=== PATIENT | female | born 1995 | race Caucasian/White ===

== ENCOUNTER → 2021-09-05 08:03 | Outpatient (CLI) | payer BC, SELFPAY | PROVIDERS: Visit Provider Nurse Practitioner | DX: U07.1 COVID-19 (principal) | CPT/HCPCS: C9803; U0003; U0005 ==

== ENCOUNTER → 2021-09-12 08:17 | Outpatient (CLI) | payer BC, SELFPAY ==
--- NOTE | 2021-09-14 12:52 | PC.NURSE ---
attempted to contact about positive covid test results, unable to reach at this time
== END ==
PROVIDERS: Visit Provider Nurse Practitioner
DX: U07.1 COVID-19 (principal)
CPT/HCPCS: C9803; U0003; U0005

== ENCOUNTER 2023-12-06 10:12 | Outpatient (CLI) | payer BC, SELFPAY ==
[2023-12-06 11:51] LABS: HCG,Quantitative 594 mIU/ml (0-5.42)
[2023-12-07 08:20] LABS: Progesterone 25.3 ng/mL (.)
== END 2023-12-06 23:59 ==
LOC: LAB 10:14
PROVIDERS: Visit Provider Obstetrics & Gynecology
DX: N92.6 Irregular menstruation, unspecified (principal)
CPT/HCPCS: 36415; 84144; 84702

== ENCOUNTER 2023-12-25 13:56 | Outpatient (POV) | payer BC, SELFPAY | END 2023-12-25 23:59 | disposition home or self-care (01) | LOC: SC 13:56 | PROVIDERS: Visit Provider Dermatology | DX: Z00.00 Encounter for general adult medical examination without abnormal findings (principal) ==

== ENCOUNTER 2024-01-07 09:19 | Outpatient (CLI) | payer BC, SELFPAY ==
--- NOTE | 2024-01-07 09:21 | US_ITS ---
PROCEDURE: US OB <= 14 WEEKS FETUS CLINICAL INDICATION: viability COMPARISON: No exams were available for comparison FINDINGS: Transvaginal sonographic images of the pelvis were obtained. From her last menstrual period she is 8weeks 6days. An intrauterine gestational sac is present with a pole with a crown-rump length of 1.84cm This correlates to a gestational age of 8weeks 3days. heart tones are ABSENT WITH NO CARDIAC ACTIVITY SEEN BOTH WITH REAL-TIME AND DOPPLER ULTRASOUND. Yolk sac is noted. The yolk sac measures 4.9mm. The right ovary is seen and appears normal. There is the collapsed corpus luteum measuring 2.4 cm x 1.6 cm x 1.9 cm. The left ovary is seen and appears normal. There is no fluid in the cul-de-sac. IMPRESSION: 1. Nonviable fetus within the uterine cavity. 2. The crown-rump length is 8 weeks 3 days. 3. heart rate activity is not seen both in real-time and Doppler. 4. Missed . Dictated by: Neto Aguila MD 01/07/2024 12:49 Neto Aguila MD in [place] 01/07/2024 12:49
[2024-01-07 11:42] LABS: Basophils # 0.1 K/mm3 (0-0.2); Basophils % 1.1 % (0.1-2.0); Eosinophils % 0.5 % (0.1-12.0); Hematocrit 43.8 % (37.0-47.0); Hemoglobin 14.8 g/dL (12.2-16.2); Lymphocytes # 1.8 K/mm3 (0.7-4.5); Lymphocytes % 25.4 % (10-50); Mean Corpuscular HGB Conc 33.8 g/dL (31.8-35.4); Mean Corpuscular Volume 94.8 fl (81-99); Mean Platelet Volume 7.4 fl (7.4-10.4); Monocytes # 0.3 K/mm3 (0.1-1.0); Monocytes % 3.8 % (1.7-9.3); Neutrophils # 4.9 K/mm3 (1.8-7.8); Neutrophils % 69.1 % (37.0-80.0); Platelet Count 258 K/mm3 (142-424); Red Blood Count 4.62 M/mm3 (4.20-5.40); Red Cell Distribution Width 12.8 % (11.5-17.5); White Blood Count 7.1 K/mm3 (4.8-10.8)
[2024-01-07 12:44] LABS: Alanine Aminotransferase 18 U/L (12-78); Albumin Level 4.7 g/dl (3.5-5.0); Albumin/Globulin Ratio 1.8 (1.1-1.8); Alkaline Phosphatase 74 U/L (38-126); Anion Gap 9.8 mEq/L (5-15); Aspartate Amino Transferase 23 U/L (14-36); Bilirubin,Total 0.4 mg/dl (0.2-1.3); Blood Urea Nitrogen 8 mg/dl (7-17); Calcium 9.9 mg/dl (8.4-10.2); Carbon Dioxide 30 mmol/L (22.0-30.0); Chloride 100 mmol/L (98-107); Estimated Glomerular Filt Rate 146 ml/min (>60); GFR (African American) 177 ML/MIN (>60); Globulin 2.6 g/dL (1.3-3.2); Glucose 98 mg/dl (74-100); Potassium 3.8 mmoL/L (3.5-5.1); Sodium 136 mmol/L (136-145); Total Protein,Serum 7.3 g/dl (6.3-8.2)
[2024-01-07 13:37] LABS: HCG,Quantitative 35732 mIU/ml (0-5.42)
== END 2024-01-07 23:59 ==
PROVIDERS: Visit Provider Obstetrics & Gynecology
DX: O26.891 Other specified pregnancy related conditions, first trimester (principal); O02.1 Missed abortion; O03.9 Complete or unspecified spontaneous abortion without complication
CPT/HCPCS: 36415; 76801; 80053; 84702; 85025; 87086

== ENCOUNTER 2024-01-08 09:28 | Day surgery (SDC) | payer BC, SELFPAY ==
[2024-01-08] VITALS (9 sets, daily range): BP systolic 113–139; BP diastolic 54–79; PULSE 72–89; RESP 14–19; TEMP 36.3–37.1; O2SAT 99–100; BMI 24.7
--- NOTE | 2024-01-08 10:33 | EXP.ANES.CKL ---
[facility] Disclaimer: The information contained in this section may have been updated after the patient was seen, as this information can be updated by other users. Medical History Missed Anxiety IBS (irritable bowel syndrome) Surgical History No significant past surgical history Family History Other No significant family history Social History Smoking Status: Never smoker alcohol intake: never substance use type: denies use current occupational status: employed Travel in the last 8 weeks: None [facility] Anesthesia Checklist Patient Identification Patient Identification: Arm Band Structural Data Admitted From: Home Planned Operative Procedure/s: D&C with [place] Consent for Planned Operative Procedure(s) Verified: Yes Verified Documents: Surgical Consent and History and Physical NPO Status Verified Time NPO: 00:00 Additional verifications Anesthesia Reactions: No Hx Blood Transfusions: No Blood Transfusion Reaction: No Airway Assessment Mallampati Score:: Class II C-Spine Mobility Assessed: Yes TMJ Mobility Assessed: Yes Dentition: Good Dentition Neurological Assessment Level of Consciousness: Awake and Alert Anesthesia Plan Anesthesia Risk discussed: Yes Anesthesia Plan: Verified ASA Class: II Anesthesia Type: General
[2024-01-08] MEDS: ACETAMINOPHEN 500MG TAB 500 MG PO ×2 (10:34→10:36)
[2024-01-08] MEDS: DOXYCYCLINE HYCL 100 MG TABLET 200 MG PO ×2 (10:36)
--- NOTE | 2024-01-08 12:05 | EXP.OP.NOTE ---
Date of procedure: 01/08/24 Pre-op Diagnosis:: 1. Missed Post-op Diagnosis:: 1. Missed Procedure performed:: Suction dilation and curettage Surgeon:: Tala Anderson DO Forming Fixer(s):: N/a COST COORDINATOR:: Akash Massey Anesthesia: GETA Estimated blood loss (mL): 50 Clinical Note:: Mrs Aleta Mason is a very pleasant 28 yo who presents to [facility] for scheduled procedure. She presented to the office 01/07/24 for initial ob visit. Ultrasound demonstrated single intrauterine with crown rump measuring 8w4d, no cardiac activity and no doppler color flow through baby. She was sent to [facility] radiology for follow-up ultrasound which confirmed no cardiac activity. Aleta desired to proceed with suction dilation and curettage for missed . ABO RH was ordered and is pending. If negative, she will be given Rhogam. Operative findings:: 1. On bimanual exam, cervix appears grossly normal. Uterus normal shape, 8 week size, retroverted. No adnexal masses palpated Operative note:: Risks, benefits and alternatives were discussed with the patient. Risks include but are not limited to bleeding, infection, uterine perforation and VTE. Patient voiced understanding and agreed to proceed. She received Doxycycline 200 mg PO x 1 preoperatively. She was wheeled back to the operating room and placed under general anesthesia without difficulty. She was placed in dorsal lithotomy position and prepped and draped in the normal sterile fashion. Straight catheter was used to drain the bladder. A bimanual exam was performed. A weighted Auvard was placed in the vaginal vault. Single tooth tenaculum was placed on anterior lip of the cervix. Uterus sounded to 10. Sequential Jonathan dilators were used to dilate the cervical os. An 7 mm curved martiniquais suction curettage was advanced into the uterine cavity without difficulty and was used to suction contents of the uterus. Following removal of the products of conception, a medium sized sharp curette was advanced into the uterine cavity and was used to scrape the uterine colby until a gritty texture was noted. At this time, the suction curette was advanced one more time to suction any remaining products of conception and blood. Instruments were removed from the vagina. Tenaculum site was noted to be hemostatic. Patient was awaken from anesthesia without difficulty. Products of conception will be sent to pathology for review. She was transported to recovery room in stable condition. Patient will be discharged home when awake and ambulating. She was given instructions to follow-up in the office in 2 weeks. Condition: stable Disposition: same day Specimens:: 1. Products of conception Complications:: None
--- NOTE | 2024-01-08 12:09 | P.PNANES_ITS ---
[facility] Anesthesia Record Part I Anesthesia Record I Intake, IV Amount: 500 Hydration: Adequate Estimated blood loss (mL): 50 Urine output (mL): 100 Blood Products used (#): none Blood Pressure: 113/65 SaO2: 99 Pulse Rate: 75 Airway Patency: Patent Respiratory Rate: 16 Temperature: 98.8 F Patient is:: Drowsy Stable to PACU at:: 12:05
[2024-01-08] MEDS: RHO(D) IMMUNE GLOBULIN 1,500 UNIT SYRINGE IM (14:29)
[2024-01-09 07:47] VITALS: BP 125/79; PULSE 72; RESP 19; TEMP 36.3; O2SAT 100
--- NOTE | 2024-01-09 07:47 | EXP.ANES.II ---
[facility] Anesthesia Record Part II Anesthesia Record Part II Discharge Time: 12:40 Destination: Surgical Day Care (OP Surgery) PACU nurse assessment reviewed?: Yes Patient Condition:: Good Anesthesia Complications:: None Swallowing reflex intact?: Yes Airway Patency: Patent Cyanosis?: No Blood Pressure: 125/79 SaO2: 100 Respiratory Rate: 19 Pulse Rate: 72 Temperature: 97.3 F Mental Status: Alert & Oriented Pain level:: 0 Nausea and/or vomitting:: None Intake, IV Amount: 0 Hydration: Adequate
== END 2024-01-08 14:34 | disposition home or self-care (01) ==
PROVIDERS: Visit Provider Obstetrics & Gynecology
PROC: (CPT 59820; principal; 2024-01-08 11:00)
DX: O02.1 Missed abortion (principal)
CPT/HCPCS: 59820; 36415; 86850; J2405; J2790

== ENCOUNTER 2024-04-10 09:43 | Outpatient (CLI) | payer BC, SELFPAY ==
[2024-04-10 11:35] LABS: HCG,Quantitative 191 mIU/ml (0-5.42)
== END 2024-04-10 23:59 | disposition home or self-care (01) ==
LOC: LAB 09:44
PROVIDERS: Visit Provider Obstetrics & Gynecology
DX: N92.6 Irregular menstruation, unspecified (principal)
CPT/HCPCS: 36415; 84702

== ENCOUNTER 2024-05-06 09:28 | Outpatient (CLI) | payer BC, SELFPAY ==
--- OUTSIDE RECORDS SUMMARY | 2024-05-06 09:31 | XMS_ITS | Patient Health Record ---
Author Name Unknown Organization [facility] Address [address] [place] [address] Care Team Providers Care Railways Assistant Name Role Phone Adamaris Vleasquez Unavailable [phone] Reason For Referral No Information Immunizations Vaccine Route Administration Date Status Comme nts Influenza, seasonal Unknown 10/15/2022 Administered SARS-COV-2 Unknown 10/15/2021 Administered 2021 Social History Sex Assigned At : Social History Observation Description Sex Assigned At Female Plan Of Treatment No Information Insurance Providers Payer Name Payer Address Payer Phone Subscriber Number Group Number Insured Name Patient Relationship to Insured Coverage Start Date Coverage End Date Mindy PAL [address] [place] [address] [phone] [id number] Aparna Montiel Self - patient is the insured Medical (General) History Medical History History ICD Code None of these apply Anxiety Current Medication: Lexapro 10mg once da taylor Migraine Headaches Special assistance needed for care: None Surgical History Surgery Date(Month/Year) None
--- OUTSIDE RECORDS SUMMARY | 2024-05-06 09:31 | XMS_ITS ---
Author Name Unknown Organization [facility] Address [address] [place] [address] Care Team Providers Care Eyeglass Assembler Name Role Phone Eva, Adamaris Unavailable [phone] Social History Sex Assigned At : Social History Observation Description Sex Assigned At Female Encounters Encounter Location Date Provider Diagnosis [facility] [address] [facility] [address] [place] [address] 11/15/2022 Adamaris Velasquez Plan Of Treatment No Information Progress Notes * Aleta MASONDOB:1994 (27 yo F)Acc No.[id number]:11/15/2022 Patient:?Aleta Mason :1995???Age:27 Y???Sex:Female Address:[place] [address] Subjective: * Chief Complaints: * ??? * Medical History:? * Surgical History:? * Hospitalization/Major Diagno stic Procedure:? * Medications:? Objective: Assessment: Plan: * Treatment: * Procedure Codes:? * true * Date:? Generated for Tushar hinojosa/Lorenzo/eTransmitting on:?05/06/2024 09:31 AM EDT
--- OUTSIDE RECORDS SUMMARY | 2024-05-06 09:31 | XMS_ITS ---
Author Name Unknown Organization [facility] Address [address] [facility] [place] [facility] [place] [address] Care Team Providers Care Transmission Line Engineer Name Role Phone Adamaris Velasquez Unavailable [phone] Social History Sex Assigned At : Social History Observation Description Sex Assigned At Female Encounters Encounter Location Date Provider Diagnosis [facility] [address] [place] [address] [address] [place] [address] 11/17/2022 Adamaris Velasquez Plan Of Treatment No Information Progress Notes * Aleta MASONDOB:1994 (28 yo F)Acc No.[id number]:11/17/2022 Progress Note Patient:NIKAJAMAR Aleta Provider:?Adamaris Velasquez APRN :1995???Age:27 Y???Sex:Female D ate:11/17/2022 Address:[id number] Subjective: * Chief Complaints: * ??? * Medical History:? Objective: * Vitals:? Assessment: Plan: * Treatment: * Billing Information: * Visit Code:? * Procedure Codes:? * Electronic signature of Raul Velasquez APRN on 05/06/2024 at 09:31 AM EDT Sign off status: Pending Visit Status:?CANC (Cancelle d) * Provider:?Adamaris Velasquez APRN Date:?12/2022 Generated for Tushar hinojosa/Lorenzo/Xavismitting on:?05/06/2024 09:31 AM EDT
--- OUTSIDE RECORDS SUMMARY | 2024-05-06 09:31 | XMS_ITS ---
Author Name Unknown Organization [facility] Address [address] [facility] [facility] [address] [place] [address] Care Team Providers Care Clay Press Operator Name Role Phone Adamaris Velasquez Unavailable [phone] Mahi Rudd Unavailable [phone] REASON FOR VISIT Nexplanon Removal and iud insertion Social History Sex Assigned At : Social History Observation Description Sex Assigned At Female Encounters Encounter Location Date Provider Diagnosis [facility] [address] [place] [address] [address] [place] [address] 12/05/2022 Mahi Rudd Plan Of Treatment No Information Progress Notes * Aleta MASONDOB:1994 (28 yo F)Acc No.[id number]:12/05/2022 Patient:?Aleta MASON Provider:?Mahi Rudd MD :1995???Age:27 Y???Sex:Female D ate:12/05/2022 Address:[id number] Subjective: * Chief Complaints: * ???1. Nexplanon Removal and iud insertion. * Medical History:? Objective: * Vitals:? Assessment: Plan: * Treatment: * Billing Information: * Visit Code:? * Procedure Codes:? * Electronic signature of Celestino Rudd MD on 05/06/2024 at 09:30 AM EDT Sign off status: Pending Visit Status:?CANC (Cancelle d) * Provider:?Mahi Rudd MD Date:?2022 Generated for Tushar hinojosa/Lorenzo/Edgar on:?05/06/2024 09:30 AM EDT
[2024-05-06 09:50] LABS: Basophils # 0.1 K/mm3 (0-0.2); Basophils % 1.1 % (0.1-2.0); Eosinophils % 0.5 % (0.1-12.0); Hematocrit 40.8 % (37.0-47.0); Hemoglobin 14.3 g/dL (12.2-16.2); Lymphocytes # 1.7 K/mm3 (0.7-4.5); Lymphocytes % 24.6 % (10-50); Mean Corpuscular HGB Conc 35.1 g/dL (31.8-35.4); Mean Corpuscular Hemoglobin 32.1 pg (27.0-31.2); Mean Corpuscular Volume 91.6 fl (81-99); Mean Platelet Volume 7.6 fl (7.4-10.4); Monocytes # 0.3 K/mm3 (0.1-1.0); Monocytes % 4.3 % (1.7-9.3); Neutrophils # 4.7 K/mm3 (1.8-7.8); Neutrophils % 69.5 % (37.0-80.0); Platelet Count 264 K/mm3 (142-424); Red Blood Count 4.45 M/mm3 (4.20-5.40); Red Cell Distribution Width 12.8 % (11.5-17.5); White Blood Count 6.8 K/mm3 (4.8-10.8)
[2024-05-06 14:24] LABS: HIV (1&2) Antibody Rapid NONREACTIVE (NONREACTIVE)
[2024-05-07 06:15] LABS: HCV Ab Non Reactive (Non Reactive); Hepatitis B Surface Antigen Negative (Negative)
[2024-05-07 07:15] LABS: Rubella Antibodies, IgG 4.72 index (Immune >0.99)
[2024-05-07 16:43] LABS: Rapid Plasma Reagin Ab Titer Non Reactive titer (NonRea<1:1)
[2024-05-11 08:09] LABS: Neisseria gonorrhoeae, NAA Negative (Negative)
== END 2024-05-06 23:59 | disposition home or self-care (01) ==
PROVIDERS: Visit Provider Obstetrics & Gynecology
DX: Z34.90 Encounter for supervision of normal pregnancy, unspecified, unspecified trimester (principal)
CPT/HCPCS: 36415; 85025; 86593; 86762; 86850; 87086; 87340; 87491; 87591

== ENCOUNTER 2024-07-28 10:16 | Outpatient (CLI) | payer BC, SELFPAY ==
--- NOTE | 2024-07-28 10:22 | US_ITS ---
PROCEDURE: US OB /MATERNAL DETAIL CLINICAL INDICATION: 20 week anatomy scan COMPARISON: FINDINGS: Transabdominal sonographic images of the pelvis were obtained. From her established due date she is 19 weeks 3 days. Single viable intrauterine gestation. Cephalic position. Placenta: Anteriorplacenta grade 1. There are multiple placental lakes. There is an average amount of fluid. The cervix appears satisfactory. Closed and measuring 2.7 cm in length. Complete survey performed and was unremarkable on the submitted images as in PACS. No discrete anomalies identified on survey imaging by technologist. Active fetus. Three-vessel cord with satisfactory umbilical cord insertion. 4- chamber heart noted. Situs, aortic arch, LVOT, RVOT, three-vessel view appear normal. Survey of brain & ventricles Unremarkable. Cerebellum, thalamus, choroid plexus, cisterna magna appear normal. Face and neck survey unremarkable. Profile, nasion, lips and nose appeared normal. Diaphragm and chest views unremarkable. Abdomen: Both kidneys noted and unremarkable. Stomach and bladder noted and satisfactory. Spine: Survey of the spine satisfactory with no anomalies identified nor imaged. Cervical, thoracic, lower spine appear normal. Both arms and legs noted. Amniotic Fluid: Adequate. MVP 3.71 cm. Measurements: Average ultrasound age 19weeks 1day. Estimated due date by ultrasound age 0312/21/2024. Estimated weight 270g BPD = 19weeks 1day HC = 18weeks 5days AC = 18weeks 5days FL = 19weeks 4days Growth Percentile= 23 Heart Rate = 143bpm Cerebellum = 18weeks 2days Humerus = 19weeks 6days HC/AC is 1.19 FL/BPD is 0.71 FL/AC is 0.23 IMPRESSION: 1. Viable fetus in the cephalic presentation with an anterior placenta grade 1. There are multiple placental lakes. 2. The fluid is within normal limits with an MVP 3.71 cm. 3. Anatomical scan appears normal. 4. biometry is consistent with the dates. Dictated by: Neto Aguila MD 07/28/2024 16:35 Neto Aguila MD in [place] 07/28/2024 16:35
== END 2024-07-28 23:59 | disposition home or self-care (01) ==
LOC: RAD 10:18
PROVIDERS: PCP Nurse Practitioner Primary Care; Visit Provider Obstetrics & Gynecology
DX: Z36.89 Encounter for other specified antenatal screening (principal); Z3A.19 19 weeks gestation of pregnancy
CPT/HCPCS: 76811

== ENCOUNTER 2024-09-23 09:52 | Outpatient (CLI) | payer BC, SELFPAY ==
[2024-09-23 10:20] LABS: Basophils # 0.1 K/mm3 (0-0.2); Basophils % 1.1 % (0.1-2.0); Eosinophils % 0.4 % (0.1-12.0); Hematocrit 35.8 % (37.0-47.0); Hemoglobin 12.3 g/dL (12.2-16.2); Lymphocytes # 1.5 K/mm3 (0.7-4.5); Mean Corpuscular HGB Conc 34.4 g/dL (31.8-35.4); Mean Platelet Volume 7.7 fl (7.4-10.4); Monocytes # 0.4 K/mm3 (0.1-1.0); Monocytes % 4.2 % (1.7-9.3); Neutrophils # 7.9 K/mm3 (1.8-7.8); Neutrophils % 79.3 % (37.0-80.0); Platelet Count 178 K/mm3 (142-424); Red Blood Count 3.85 M/mm3 (4.20-5.40); Red Cell Distribution Width 13.6 % (11.5-17.5); White Blood Count 9.9 K/mm3 (4.8-10.8)
[2024-09-23 10:31] LABS: Glucose,Fasting 94 mg/dl (74-100)
[2024-09-23 12:12] LABS: Glucose 1 Hour 145 mg/dL (74-100)
== END 2024-09-23 23:59 | disposition home or self-care (01) ==
PROVIDERS: PCP Nurse Practitioner Primary Care; Visit Provider Obstetrics & Gynecology
DX: Z34.90 Encounter for supervision of normal pregnancy, unspecified, unspecified trimester (principal)
CPT/HCPCS: 36415; 82951; 85025

== ENCOUNTER 2024-09-25 08:05 | Outpatient (CLI) | payer BC, SELFPAY ==
[2024-09-25 09:31] LABS: Glucose,Fasting 109 mg/dl (74-100)
[2024-09-25 10:13] LABS: Glucose 1 Hour 240 mg/dL (74-100)
[2024-09-25 10:49] LABS: Glucose 2 Hour 187 mg/dL (74-100)
[2024-09-25 11:55] LABS: Glucose 3 Hour 140 mg/dL (74-100)
[2024-09-25 15:44] LABS: RPR W/RFX Titers Nonreactive (Nonreactive)
== END 2024-09-25 23:59 | disposition home or self-care (01) ==
LOC: LAB 08:07
PROVIDERS: PCP Nurse Practitioner Primary Care; Visit Provider Obstetrics & Gynecology
DX: R73.09 Other abnormal glucose (principal); Z34.90 Encounter for supervision of normal pregnancy, unspecified, unspecified trimester
CPT/HCPCS: 36415; 82951; 86592

== ENCOUNTER 2024-09-29 09:09 | Outpatient (CLI) | payer BC, SELFPAY ==
[2024-09-29 10:09] VITALS: BP 116/70; PULSE 71; RESP 16; TEMP 37; O2SAT 98; BMI 26.6
[2024-09-29] MEDS: RHO(D) IMMUNE GLOBULIN 1,500 UNIT (300MCG) SYRINGE 300 MCG IM (10:14)
[2024-09-29 14:53] LABS: RPR W/RFX Titers Nonreactive (Nonreactive)
== END 2024-09-29 10:22 | disposition home or self-care (01) ==
LOC: INF 09:11
PROVIDERS: PCP Nurse Practitioner Primary Care; Visit Provider Obstetrics & Gynecology
DX: Z34.90 Encounter for supervision of normal pregnancy, unspecified, unspecified trimester (principal)
CPT/HCPCS: 36415; 86592; 96372; J2790

== ENCOUNTER 2024-10-21 10:17 | Outpatient (CLI) | payer BC, SELFPAY ==
--- NOTE | 2024-10-21 10:21 | US_ITS ---
PROCEDURE: US OB BIOPHYSICAL PROFILE CLINICAL INDICATION: GDMA2 COMPARISON: US US OB /MATERNAL DETAIL from 07/28/2024 FINDINGS: Transabdominal sonographic images of the uterus were obtained. From her established due date she is 31weeks 2days. The following parameters are obtained: Viable Fetus in the cephalic presentation with an anterior placenta grade 2. There are several placental lakes. Average ultrasound age is 32weeks 1day Estimated weight 1,908g, 4 lb 3 oz The cervix measures 3.04 cm. Measurements: heart Rate = 147bpm BPD = 32weeks 0 days, 61 percentile HC = 32weeks 0 days, 28 percentile AC = 32weeks 2days, 76 percentile FL = 32weeks 0 days, 57 percentile HC/AC is 1.02 FL/BPD is 0.78 FL/AC is 0.22 67 percentile Amniotic fluid index: 18.59cm, MVP 5.27 cm Qualitative AFV:2 Breathing movements: 2 Gross Body Movements: 2 Tone: 2 Biophysical profile score: 8 No obvious anomalies evident.Kidneys, profile, nasion, stomach, bladder, four-chamber heart, three-vessel cord appear normal. IMPRESSION: 1. Viable fetus in the cephalic presentation with an anterior placenta grade 2. 2. The fluid is within normal limits with an amniotic fluid index 18.59 cm, MVP 5.27 cm. 3. Biophysical profile is 8/8 with good breathing movement and movement seen. 4. Limited anatomical scan appears normal. 5. There has been good interval growth with the fetus currently 67th percentile. Dictated by: Neto Aguila MD 10/21/2024 13:48 Neto Aguila MD in [place] 10/21/2024 13:48
== END 2024-10-21 23:59 | disposition home or self-care (01) ==
LOC: RAD 10:18
PROVIDERS: PCP Nurse Practitioner Primary Care; Visit Provider Obstetrics & Gynecology
DX: O24.419 Gestational diabetes mellitus in pregnancy, unspecified control (principal); Z3A.31 31 weeks gestation of pregnancy; Z87.59 Personal history of other complications of pregnancy, childbirth and the puerperium
CPT/HCPCS: 76816; 76819

== ENCOUNTER 2024-11-17 14:58 | Outpatient (CLI) | payer BC, SELFPAY ==
--- NOTE | 2024-11-17 15:01 | US_ITS ---
PROCEDURE: US OB BIOPHYSICAL PROFILE CLINICAL INDICATION: BPP and ELIU COMPARISON: US US OB /MATERNAL DETAIL from 07/28/2024 US US OB BIOPHYSICAL PROFILE from 10/21/2024 FINDINGS: Transabdominal sonographic images of the uterus were obtained. From her established due date she is 35weeks 1day. The following parameters are obtained: Viable Fetus in the cephalic presentation with an anterior placenta grade 2. There are placental lakes seen. Cervix measures 3.19 cm. Measurements: heart Rate = 142bpm Amniotic fluid index: 12.7cm, MVP 3.80 cm Qualitative AFV:2 Breathing movements: 2 Gross Body Movements: 2 Tone: 2 Biophysical profile score: 8 No obvious anomalies evident.Kidneys, bladder, stomach, four-chamber heart, three-vessel cord appear normal. IMPRESSION: 1. Viable fetus in the cephalic presentation with an anterior placenta grade 2. There are several placental lakes seen. 2. The fluid is within normal limits with an amniotic fluid index 12.7 cm, MVP 3.80 cm. 3. Biophysical profile 8/8 with good breathing movement and movement seen. 4. Limited anatomical scan appears normal. 5. Suggest growth at next ultrasound. Dictated by: Neto Aguila MD 11/17/2024 17:29 Neto Aguila MD in [place] 11/17/2024 17:29
== END 2024-11-17 23:59 | disposition home or self-care (01) ==
LOC: RAD 14:59
PROVIDERS: PCP Internal Medicine Adolescent Medicine; Visit Provider Obstetrics & Gynecology
DX: O24.419 Gestational diabetes mellitus in pregnancy, unspecified control (principal)
CPT/HCPCS: 76819

== ENCOUNTER 2024-11-21 16:26 | Outpatient (CLI) | payer BC, SELFPAY | END 2024-11-21 23:59 | disposition home or self-care (01) | LOC: LAB.DROPOF 16:26 | PROVIDERS: PCP Obstetrics & Gynecology; Visit Provider Obstetrics & Gynecology | DX: O24.415 Gestational diabetes mellitus in pregnancy, controlled by oral hypoglycemic drugs (principal); Z3A.36 36 weeks gestation of pregnancy | CPT/HCPCS: 86403 ==

== ENCOUNTER 2024-11-27 13:11 | Outpatient (CLI) | payer BC, SELFPAY ==
[2024-11-27] VITALS (13 sets, daily range): BP systolic 114–161; BP diastolic 73–99; PULSE 88; RESP 18; TEMP 36.6; O2SAT 98; BMI 27.4
[2024-11-27 14:03] LABS: Microscopic, Urine URINE MICROSCOPIC (MICROSCOPIC)
[2024-11-27 14:06] LABS: Appearance,Urine CLEAR (Clear); Bilirubin,Urine Negative (Negative); Blood, Urine Negative (Negative); Color,Urine YELLOW (Yellow); Glucose,Urine (UA) Negative (Negative); Ketones,Urine 1+ (Negative); Leukocyte Esterase,Urine Negative (Negative); Nitrate,Urine Negative (Negative); Protein,Urine Negative (Negative); Specific Gravity, Urine 1.025 (1.005-1.030); Urobilinogen,Urine 0.2 EU/dl (0.2)
[2024-11-27 14:16] LABS: Benzodiazepines Screen,Urine Negative ng/ml (<200)
[2024-11-27 14:17] LABS: Amphetamine/Metha Screen,Urine Negative ng/ml (<1000); Barbiturates Screen,Urine Negative ng/ml (<200)
[2024-11-27 14:18] LABS: Cannabinoid Screen,Urine Negative ng/ml (<50)
[2024-11-27 14:19] LABS: Cocaine Screen,Urine Negative ng/ml (<300); Methadone Screen,Urine Negative ng/ml (<300)
[2024-11-27 14:20] LABS: Opiate Screen,Urine Negative ng/ml (<300); Phencyclidine Screen,Urine Negative ng/ml (<25)
[2024-11-27] MEDS: BUTALB/ACETAMINOPHEN/CAFFEINE 50MG/325MG/40MG TAB 1 EACH PO (14:28)
[2024-11-27 14:40] LABS: Basophils % 0.2 % (0.1-2.0); Eosinophils % 0.1 % (0.1-12.0); Hematocrit 37.7 % (37.0-47.0); Hemoglobin 13.1 g/dL (12.2-16.2); Lymphocytes # 1.2 K/mm3 (0.7-4.5); Lymphocytes % 12.5 % (10-50); Mean Corpuscular HGB Conc 34.7 g/dL (31.8-35.4); Mean Platelet Volume 10.9 fl (7.4-10.4); Monocytes # 0.4 K/mm3 (0.1-1.0); Monocytes % 4.1 % (1.7-9.3); Neutrophils # 8.2 K/mm3 (1.8-7.8); Neutrophils % 82.7 % (37.0-80.0); Platelet Count 140 K/mm3 (142-424); Red Cell Distribution Width 13.4 % (11.5-17.5)
[2024-11-27 15:58] LABS: Chloride 102 mmol/L (98-107)
[2024-11-27 16:01] LABS: Blood Urea Nitrogen 17 mg/dl (7-17); Creatinine Clearance Estimated 162 mL/min (50-200); Estimated Glomerular Filt Rate 117 ml/min (>60); GFR (African American) 142 ML/MIN (>60)
[2024-11-27 16:02] LABS: Alanine Aminotransferase 20 U/L (12-78); Aspartate Amino Transferase 29 U/L (14-36); Calcium 9.2 mg/dl (8.4-10.2); Carbon Dioxide 24 mmol/L (22.0-30.0); Glucose 96 mg/dl (74-100)
[2024-11-27 16:16] LABS: Sodium 134 mmol/L (136-145)
[2024-11-27 16:19] LABS: Activated Partial Thrombo Time 24.2 seconds (22.5-28.5); Fibrinogen 455 mg/dL (208.1-352.0); Uric Acid 4.2 mg/dl (2.5-6.2)
[2024-11-27 16:21] LABS: Prothrombin Time < 9.2 seconds (9.2-12.1)
[2024-11-27 16:24] LABS: Bacteria,Urine 1+ /lpf
== END 2024-11-27 16:53 | disposition home or self-care (01) ==
LOC: OBOUT 13:12 → OB 13:13
PROVIDERS: Nurse Practitioner Obstetrics & Gynecology; PCP Internal Medicine Adolescent Medicine; Visit Provider Obstetrics & Gynecology
DX: O24.415 Gestational diabetes mellitus in pregnancy, controlled by oral hypoglycemic drugs (principal); Z3A.37 37 weeks gestation of pregnancy
CPT/HCPCS: 36415; 80048; 80307; 81001; 84450; 84460; 84550; 85025; 85384; 85610; 85730; G0463

== ENCOUNTER 2024-11-28 12:47 | Outpatient (CLI) | payer BC, SELFPAY ==
--- NOTE | 2024-11-28 12:47 | US_ITS ---
PROCEDURE: US OB BIOPHYSICAL PROFILE CLINICAL INDICATION: GDM,class A2 COMPARISON: US US OB /MATERNAL DETAIL from 07/28/2024 US US OB BIOPHYSICAL PROFILE from 10/21/2024 US US OB BIOPHYSICAL PROFILE from 11/17/2024 FINDINGS: Transabdominal and transvaginal sonographic images of the uterus were obtained. From her established due date she is 36weeks 5days. The following parameters are obtained: Viable Fetus in the cephalic presentation with an anterior placenta grade 2. There continues to be a placental Aguirre. Average ultrasound age is 36weeks 0 days Estimated weight 2,890g, 6 lb 6 oz. The cervix measures 3.17 cm transvaginally. Measurements: heart Rate = 134bpm BPD = 34weeks 1day, 5 percentile HC = 36weeks 0 days, 10 percentile AC = 36weeks 5days, 59 percentile FL = 36weeks 6days, 48 percentile HC/AC is 0.98 FL/BPD is 0.85 FL/AC is 0.22 42 percentile Amniotic fluid index: 10.24cm, MVP 4.51 cm. Qualitative AFV:2 Breathing movements: 2 Gross Body Movements: 2 Tone: 2 Biophysical profile score: 8 No obvious anomalies evident.Kidneys, profile, bladder, four-chamber heart, stomach, three-vessel cord appear normal. IMPRESSION: 1. Viable fetus in the cephalic presentation with an anterior placenta grade 2. Placental Aguirre continues to be present. 2. The cervix is normal length measuring 2.8-3.2 cm in length. 3. Fluid is within normal limits with an amniotic fluid index 10.24 cm, MVP 4.51 cm. 4. Biophysical profile is 8/8 with good breathing movement and movement seen. 5. There has been good growth with the fetus currently 42nd percentile. 6. Limited anatomical scan appears normal. Dictated by: Neto Aguila MD 11/29/2024 08:54 Neto Aguila MD in [place] 11/29/2024 08:54
== END 2024-11-28 23:59 | disposition home or self-care (01) ==
LOC: RAD 12:47
PROVIDERS: PCP Internal Medicine Adolescent Medicine; Visit Provider Obstetrics & Gynecology
DX: O24.419 Gestational diabetes mellitus in pregnancy, unspecified control (principal); O26.893 Other specified pregnancy related conditions, third trimester; Z67.91 Unspecified blood type, Rh negative; Z87.59 Personal history of other complications of pregnancy, childbirth and the puerperium; Z3A.36 36 weeks gestation of pregnancy
CPT/HCPCS: 76816; 76819

== ENCOUNTER 2024-12-05 10:04 | Outpatient (CLI) | payer BC, SELFPAY ==
--- NOTE | 2024-12-05 10:09 | US_ITS ---
PROCEDURE: US OB BIOPHYSICAL PROFILE CLINICAL INDICATION: GDM COMPARISON: US US OB /MATERNAL DETAIL from 07/28/2024 US US OB BIOPHYSICAL PROFILE from 10/21/2024 US US OB BIOPHYSICAL PROFILE from 11/17/2024 US OB BIOPHYSICAL PROFILE from 11/28/2024 FINDINGS: Transabdominal sonographic images of the uterus were obtained. From her established due date she is 38weeks 1day. The following parameters are obtained: Viable Fetus in the cephalic presentation with an anterior placenta grade 2. There continues to be a placental Aguirre. The cervix measures 2.95 cm. Measurements: heart Rate = 126bpm Amniotic fluid index: 8.01cm, MVP 3.72 cm Qualitative AFV:2 Breathing movements: 2 Gross Body Movements: 2 Tone: 2 Biophysical profile score: 8 No obvious anomalies evident.Kidneys, profile, stomach, bladder, four-chamber heart, three-vessel cord appear normal. IMPRESSION: 1. Viable fetus in the cephalic presentation with an anterior placenta grade 2. There continues to be a placental Aguirre. 2. The fluid is within normal limits with an an amniotic fluid index 8.01 cm, MVP 3.72 cm. 3. Biophysical profile is 8/8 with good breathing movement and movement seen. 4. Limited anatomical scan appears normal. Dictated by: Neto Aguila MD 12/06/2024 09:20 Neto Aguila MD in [place] 12/06/2024 09:20
[2024-12-05 11:00] LABS: Basophils % 0.2 % (0.1-2.0); Eosinophils % 0.1 % (0.1-12.0); Hematocrit 38.8 % (37.0-47.0); Hemoglobin 13.5 g/dL (12.2-16.2); Lymphocytes # 1.2 K/mm3 (0.7-4.5); Lymphocytes % 12.6 % (10-50); Mean Corpuscular HGB Conc 34.8 g/dL (31.8-35.4); Mean Corpuscular Hemoglobin 32.1 pg (27.0-31.2); Mean Corpuscular Volume 92.2 fl (81-99); Mean Platelet Volume 10.8 fl (7.4-10.4); Monocytes # 0.4 K/mm3 (0.1-1.0); Monocytes % 4.1 % (1.7-9.3); Neutrophils # 7.8 K/mm3 (1.8-7.8); Neutrophils % 82.5 % (37.0-80.0); Platelet Count 123 K/mm3 (142-424); Red Blood Count 4.21 M/mm3 (4.20-5.40); Red Cell Distribution Width 13.4 % (11.5-17.5); White Blood Count 9.5 K/mm3 (4.8-10.8)
[2024-12-05 11:10] LABS: Activated Partial Thrombo Time 23.4 seconds (22.5-28.5); Fibrinogen 414 mg/dL (208.1-352.0); Prothrombin Time 8.9 seconds (9.2-12.1)
[2024-12-05 11:23] LABS: Albumin Level 3.9 g/dl (3.5-5.0); Chloride 102 mmol/L (98-107); Sodium 135 mmol/L (136-145)
[2024-12-05 11:24] LABS: Potassium 4.3 mmoL/L (3.5-5.1)
[2024-12-05 11:26] LABS: Alanine Aminotransferase 16 U/L (12-78); Albumin/Globulin Ratio 1.8 (1.1-1.8); Alkaline Phosphatase 177 U/L (38-126); Anion Gap 12.3 mEq/L (5-15); Aspartate Amino Transferase 24 U/L (14-36); Bilirubin,Total 0.3 mg/dl (0.2-1.3); Blood Urea Nitrogen 15 mg/dl (7-17); Carbon Dioxide 25 mmol/L (22.0-30.0); Estimated Glomerular Filt Rate 98 ml/min (>60); GFR (African American) 119 ML/MIN (>60); Globulin 2.2 g/dL (1.3-3.2); Total Protein,Serum 6.1 g/dl (6.3-8.2)
[2024-12-05 11:27] LABS: Calcium 9.1 mg/dl (8.4-10.2); Glucose 67 mg/dl (74-100); Uric Acid 5.2 mg/dl (2.5-6.2)
[2024-12-05 12:22] LABS: INR < 0.90 (0.9-1.1)
== END 2024-12-05 23:59 | disposition home or self-care (01) ==
LOC: LAB 10:05
PROVIDERS: PCP Internal Medicine Adolescent Medicine; Visit Provider Obstetrics & Gynecology
DX: O24.419 Gestational diabetes mellitus in pregnancy, unspecified control (principal); O26.893 Other specified pregnancy related conditions, third trimester; Z67.91 Unspecified blood type, Rh negative; Z87.59 Personal history of other complications of pregnancy, childbirth and the puerperium; O13.9 Gestational [pregnancy-induced] hypertension without significant proteinuria, unspecified trimester; Z3A.38 38 weeks gestation of pregnancy
CPT/HCPCS: 36415; 76819; 80053; 84550; 85025; 85384; 85610; 85730

== ENCOUNTER 2024-12-06 11:49 | Outpatient (CLI) | payer BC, SELFPAY ==
[2024-12-06 11:59] VITALS: BMI 27.4
[2024-12-06 12:19] LABS: Microscopic, Urine URINE MICROSCOPIC (MICROSCOPIC)
[2024-12-06 12:22] LABS: Appearance,Urine CLEAR (Clear); Bilirubin,Urine Negative (Negative); Blood, Urine Negative (Negative); Color,Urine YELLOW (Yellow); Glucose,Urine (UA) Negative (Negative); Ketones,Urine Negative (Negative); Leukocyte Esterase,Urine Negative (Negative); Nitrate,Urine Negative (Negative); Protein,Urine 1+ (Negative); Specific Gravity, Urine >= 1.030 (1.005-1.030); Urobilinogen,Urine 0.2 EU/dl (0.2)
[2024-12-06 12:29] LABS: Creatinine,Urine Random 138 mg/dL (Not Estab.)
[2024-12-06 12:34] LABS: Amphetamine/Metha Screen,Urine Negative ng/ml (<1000); Bacteria,Urine 1+ /lpf; WBC,Urine Occasional #/hpf (0-3)
[2024-12-06 12:35] LABS: Barbiturates Screen,Urine Negative ng/ml (<200); Benzodiazepines Screen,Urine Negative ng/ml (<200)
[2024-12-06 12:36] LABS: Cannabinoid Screen,Urine Negative ng/ml (<50)
[2024-12-06 12:37] LABS: Cocaine Screen,Urine Negative ng/ml (<300); Methadone Screen,Urine Negative ng/ml (<300)
[2024-12-06 12:38] LABS: Opiate Screen,Urine Negative ng/ml (<300); Phencyclidine Screen,Urine Negative ng/ml (<25)
[2024-12-06 12:41] LABS: Basophils % 0.1 % (0.1-2.0); Eosinophils % 0.1 % (0.1-12.0); Hemoglobin 13.1 g/dL (12.2-16.2); Lymphocytes # 0.6 K/mm3 (0.7-4.5); Lymphocytes % 7.6 % (10-50); Mean Corpuscular HGB Conc 35.4 g/dL (31.8-35.4); Mean Corpuscular Hemoglobin 32.3 pg (27.0-31.2); Mean Corpuscular Volume 91.4 fl (81-99); Mean Platelet Volume 10.8 fl (7.4-10.4); Monocytes # 0.4 K/mm3 (0.1-1.0); Monocytes % 4.8 % (1.7-9.3); Neutrophils # 6.5 K/mm3 (1.8-7.8); Neutrophils % 86.7 % (37.0-80.0); Platelet Count 124 K/mm3 (142-424); Red Blood Count 4.05 M/mm3 (4.20-5.40); White Blood Count 7.5 K/mm3 (4.8-10.8)
[2024-12-06 12:46] LABS: Chloride 107 mmol/L (98-107)
[2024-12-06 12:47] LABS: Albumin Level 3.7 g/dl (3.5-5.0); Potassium 3.8 mmoL/L (3.5-5.1); Sodium 133 mmol/L (136-145)
[2024-12-06 12:49] LABS: Alanine Aminotransferase 20 U/L (12-78); Aspartate Amino Transferase 28 U/L (14-36); Blood Urea Nitrogen 18 mg/dl (7-17); Carbon Dioxide 20 mmol/L (22.0-30.0); Creatinine Clearance Estimated 162 mL/min (50-200); Estimated Glomerular Filt Rate 117 ml/min (>60); GFR (African American) 142 ML/MIN (>60)
[2024-12-06 12:50] LABS: Albumin/Globulin Ratio 1.4 (1.1-1.8); Alkaline Phosphatase 172 U/L (38-126); Anion Gap 9.8 mEq/L (5-15); Bilirubin,Total 0.3 mg/dl (0.2-1.3); Calcium 9.4 mg/dl (8.4-10.2); Globulin 2.7 g/dL (1.3-3.2); Glucose 90 mg/dl (74-100); Total Protein,Serum 6.4 g/dl (6.3-8.2)
[2024-12-06 13:10] LABS: Uric Acid 5.1 mg/dl (2.5-6.2)
[2024-12-06 13:36] LABS: Activated Partial Thrombo Time 24.3 seconds (22.5-28.5); Fibrinogen 486 mg/dL (208.1-352.0); Prothrombin Time 8.9 seconds (9.2-12.1)
[2024-12-06 14:07] LABS: INR < 0.90 (0.9-1.1)
[2024-12-06 16:03] VITALS: BP 122/85; PULSE 113; RESP 18; TEMP 36.8; O2SAT 97; BMI 27.4
== END 2024-12-06 14:00 | disposition home or self-care (01) ==
LOC: OBOUT 11:51 → OB 11:51
PROVIDERS: PCP Internal Medicine Adolescent Medicine; Visit Provider Obstetrics & Gynecology
DX: O24.415 Gestational diabetes mellitus in pregnancy, controlled by oral hypoglycemic drugs (principal); Z3A.38 38 weeks gestation of pregnancy
CPT/HCPCS: 80053; 80307; 81001; 82570; 84156; 84550; 85025; 85384; 85610; 85730; G0463

== ENCOUNTER 2024-12-11 13:04 | Inpatient (IN) | payer BC, SELFPAY ==
--- NOTE | 2024-12-11 13:14 | P.CONPHA_ITS ---
Pharmacy Intervention Comments: MEDICATION RECONCILIATION COMPLETED ON PATIENT USING EXTERNAL FILL HISTORY FROM PHARMACY AND LIST FROM BUSINESS DEVELOPMENT EXECUTIVE OFFICE. -ADILSON BROTHERSD
--- NOTE | 2024-12-11 13:14 | HMH.PHAINT1 ---
Pharmacy Intervention Comments: MEDICATION RECONCILIATION COMPLETED ON PATIENT USING EXTERNAL FILL HISTORY FROM PHARMACY AND LIST FROM ELECTRICAL PROJECT ENGINEER OFFICE. -ADILSON BROTHERSD
[2024-12-11 13:23] VITALS: BMI 27.4
[2024-12-11 14:35] LABS: Microscopic, Urine URINE MICROSCOPIC (MICROSCOPIC)
[2024-12-11 14:38] VITALS: BP 127/87; PULSE 95; RESP 18; TEMP 37; O2SAT 97; BMI 27.4
[2024-12-11 14:48] LABS: Alanine Aminotransferase 19 U/L (12-78); Albumin Level 3.3 g/dl (3.5-5.0); Albumin/Globulin Ratio 1.3 (1.1-1.8); Alkaline Phosphatase 170 U/L (38-126); Aspartate Amino Transferase 27 U/L (14-36); Bilirubin,Total 0.2 mg/dl (0.2-1.3); Blood Urea Nitrogen 15 mg/dl (7-17); Calcium 8.9 mg/dl (8.4-10.2); Carbon Dioxide 22 mmol/L (22.0-30.0); Chloride 107 mmol/L (98-107); Creatinine Clearance Estimated 121 mL/min (50-200); Estimated Glomerular Filt Rate 84 ml/min (>60); GFR (African American) 102 ML/MIN (>60); Globulin 2.6 g/dL (1.3-3.2); Glucose 81 mg/dl (74-100); Sodium 134 mmol/L (136-145); Total Protein,Serum 5.9 g/dl (6.3-8.2)
[2024-12-11 15:01] LABS: Appearance,Urine CLEAR (Clear); Bilirubin,Urine Negative (Negative); Blood, Urine Negative (Negative); Color,Urine YELLOW (Yellow); Glucose,Urine (UA) Negative (Negative); Ketones,Urine TRACE (Negative); Leukocyte Esterase,Urine Negative (Negative); Nitrate,Urine Negative (Negative); PH,Urine 6.5 (5.0-8.5); Protein,Urine 1+ (Negative); Specific Gravity, Urine >= 1.030 (1.005-1.030); Urobilinogen,Urine 0.2 EU/dl (0.2)
[2024-12-11 15:13] LABS: Basophils % 0.3 % (0.1-2.0); Eosinophils % 0.3 % (0.1-12.0); Hematocrit 37.5 % (37.0-47.0); Hemoglobin 13.4 g/dL (12.2-16.2); Lymphocytes # 1.5 K/mm3 (0.7-4.5); Mean Corpuscular HGB Conc 35.7 g/dL (31.8-35.4); Mean Corpuscular Hemoglobin 32.9 pg (27.0-31.2); Mean Corpuscular Volume 92.1 fl (81-99); Mean Platelet Volume 11.8 fl (7.4-10.4); Monocytes # 0.3 K/mm3 (0.1-1.0); Monocytes % 4.9 % (1.7-9.3); Neutrophils # 4.3 K/mm3 (1.8-7.8); Neutrophils % 70.2 % (37.0-80.0); Platelet Count 117 K/mm3 (142-424); Red Blood Count 4.07 M/mm3 (4.20-5.40); Red Cell Distribution Width 12.8 % (11.5-17.5); White Blood Count 6.1 K/mm3 (4.8-10.8)
[2024-12-11 15:15] LABS: Benzodiazepines Screen,Urine Negative ng/ml (<200)
[2024-12-11 15:16] LABS: Amphetamine/Metha Screen,Urine Negative ng/ml (<1000); Barbiturates Screen,Urine Negative ng/ml (<200)
[2024-12-11 15:17] LABS: Cannabinoid Screen,Urine Negative ng/ml (<50); Cocaine Screen,Urine Negative ng/ml (<300)
[2024-12-11 15:18] LABS: Methadone Screen,Urine Negative ng/ml (<300)
[2024-12-11 15:19] LABS: Bacteria,Urine Trace /lpf; Mucus,Urine Trace /lpf
[2024-12-11 15:19] LABS: Opiate Screen,Urine Negative ng/ml (<300); Phencyclidine Screen,Urine Negative ng/ml (<25)
[2024-12-11] MEDS: miSOPROStol 100MCG TABLET 25 MCG PO (15:42)
[2024-12-11 18:15] LABS: POC Glucose,Bedside 65 (70-110)
[2024-12-11 19:58] VITALS: BP 124/82; PULSE 77; RESP 18; TEMP 36.9
[2024-12-11] MEDS: miSOPROStol 100MCG TABLET 50 MCG PO (20:42)
[2024-12-11 20:56] LABS: POC Glucose,Bedside 134 (70-110)
[2024-12-12 00:54] LABS: POC Glucose,Bedside 116 (70-110)
[2024-12-12] MEDS: miSOPROStol 100MCG TABLET 50 MCG PO (02:44)
[2024-12-12 04:36] VITALS: BP 134/84; PULSE 54; RESP 16; TEMP 36.8; O2SAT 100
[2024-12-12 04:48] LABS: POC Glucose,Bedside 88 (70-110)
[2024-12-12 05:05] LABS: Fetal Membrane Rupture (Rapid) Positive (Negative)
[2024-12-12] MEDS: DEXTROSE 5%-LACTATED RINGERS 1,000 ML 125 ML IV ×2 (05:53→14:47)
--- NOTE | 2024-12-12 07:23 | P.HP_ITS ---
OB - H&P: HPI Antepartum History of Present Illness Chief complaint: Scheduled induction of labor History of present illness: Mrs Aleta Mason is a 29 yo at 39w1d who presents to [facility] L&D for scheduled induction of labor secondary to GDMA2. She has been taking Glyburide 2.5 mg PO in the AM and 5 mg PO in the PM. Blood sugars controlled with medication. She has had good care. complicated by gestational thrombocytopenia and anxiety. She takes escitalopram 10 mg PO daily. Baby is active. History of Present Criteria for establishing EDC:: LMP confirmed by 1st trimester US care: good care Ultrasounds: normal mid trimester US Obstetrical complications: gestational diabetes Medical complications: none Labs Blood type: A (-) negative Rubella: immune RPR/VDRL: nonreactive GBS status: negative HBsAG: [facility] Disclaimer: The information contained in this section may have been updated after the patient was seen, as this information can be updated by other users. Medical History Gestational thrombocytopenia GDM, class A2 Irritable bowel syndrome affecting Rh negative state in antepartum period History of miscarriage x 1 Nausea and vomiting during Missed Anxiety IBS (irritable bowel syndrome) Surgical History History of D&C Family History Other No significant family history Social History (Updated 12/11/24 @ 14:37 by Cricket South RN) Smoking Status: Never smoker alcohol intake: never substance use type: denies use current occupational status: employed Travel in the last 8 weeks: None Have you lived/traveled outside US in past 30 days?: No Contact w/someone who lives/traveled outside US past 30 days?: No Exposure to someone with infectious disease in past 14 days?: No Do you have a fever (greater than 100.4 F or 38 C)?: No Have you tested positive for COVID-19: No Exposed to someone with COVID-19 in past 14 days?: No Do you have a sore throat?: No Do you have a cough?: No Do you have any weakness?: No Are you experiencing any nausea/vomitting?: No Do you have any diarrhea?: No Are you experiencing any unusual bleeding?: No Do you have any muscle aches/pain?: No Do you have any abdominal pain?: No Are you experiencing loss of taste or smell?: No Other Medical History Have you received the Flu Vaccine for this season: No Have you received the Pneumonia Vaccine: No Review of Systems Review of Systems Review of systems:: pertinent systems reviewed and negative unless documented below Meds Home Medications and Allergies Home Medications ?Medication ?Instructions ?Recorded ?Confirmed ?Type escitalopram oxalate 10 mg tablet 10 mg PO DAILY 01/05/22 12/11/24 History vits 75-iron 28 mg-folic 1 pkg PO DAILY 01/08/23 12/11/24 History acid 800 mcg-omega-3 oral combo pack (One A Day Women's DHA) blood-glucose meter #1 ea 09/29/24 12/11/24 Rx blood sugar diagnostic (Blood #120 ea 11/05/24 12/11/24 Rx Glucose Test strips) lancets (Accu-Chek Softclix #200 ea 11/05/24 12/11/24 Rx Lancets) lancets 33 gauge (OneTouch Delica #100 ea 11/11/24 12/11/24 History Plus Lancet) glyburide 2.5 mg tablet 2.5 mg PO AM 12/11/24 12/11/24 History glyburide 5 mg tablet 5 mg PO PM 12/11/24 12/11/24 History New Prescriptions to Start Prescriptions: Allergies Allergy/AdvReac Type Severity Reaction Status Date / Time No Known Allergies Allergy Verified 12/09/24 13:27 OB - H&P: Exam Physical Exam Vital signs: Temp Pulse Resp BP Pulse Ox O2 Del Method 98.2 F 54 L 16 134/84 100 Room Air 12/12/24 04:36 12/12/24 04:36 12/12/24 04:36 12/12/24 04:36 12/12/24 04:36 12/12/24 04:36 Constitutional no acute distress and cooperative Routine HEENT Exam Head: Present normocephalic and atraumatic Eye: Absent conjunctivae pink ENT: Present mucous membranes moist Routine Neck Exam Present full ROM Routine Respiratory Exam Present CTA bilaterally and normal respiratory effort Routine Cardiovascular Exam Present RRR Routine Abdominal Exam Present soft (Gravid); Absent tenderness Routine Rectal Exam Patient deferred: visual exam Routine Exam External: Present normal urethra appearance; Absent erythema, tenderness or lacerations Routine Extremities Exam Present full ROM; Absent edema or calf tenderness Routine Neurological Exam Present alert, moving all extremities and normal speech Routine Psychiatric Exam Present normal affect and cooperative Detailed Labor and Delivery Exam Dilation (cm): 1 Effacement (%): 80 Cervix position: posterior station: -1 Consistency: soft Membranes: spontaneously ruptured Amniotic fluid: clear OB - Results Labs Labs: Short CBC 12/11/24 Range/Units 14:11 WBC 6.1 (4.8-10.8) K/mm3 Hgb 13.4 (12.2-16.2) g/dL Hct 37.5 (37.0-47.0) % Plt Count 117 L (142-424) K/mm3 BMP 12/11/24 14:11 Sodium 134 L Potassium 4.0 Chloride 107 Carbon Dioxide 22 BUN 15 Creatinine 0.80 Glucose 81 Calcium 8.9 Liver Function 12/11/24 Range/Units 14:11 Total Bilirubin 0.2 (0.2-1.3) mg/dl AST 27 (14-36) U/L ALT 19 (12-78) U/L Alkaline Phosphatase 170 H (38-126) U/L Albumin 3.3 L (3.5-5.0) g/dl Urine 12/11/24 Range/Units 13:13 Urine Color Yellow (Yellow) Urine Appearance Clear (Clear) Urine pH 6.5 (5.0-8.5) Ur Specific [place] >= 1.030 (1.005-1.030) Urine Protein 1+ A (Negative) Urine Glucose (UA) Negative (Negative) OB - A/P Antepartum (1) GDM, class A2: Status: Acute (2) Gestational thrombocytopenia: Status: Acute (3) Irritable bowel syndrome affecting : Status: Acute (4) Rh negative state in antepartum period: Status: Acute (5) History of miscarriage: Problem details: x 1 Status: Acute (6) Anxiety: Status: Acute Additional Plan Planning to breastfeed?: Yes Plan: induction Additional Information:: Admit to [facility] for scheduled induction of labor with Cytotec followed by Pitocin GBS negative Close monitoring Anticipate
[2024-12-12 07:46] VITALS: BP 127/84; PULSE 68; RESP 18; TEMP 36.6; O2SAT 100
[2024-12-12] MEDS: LACTATED RINGERS 1000ML 1,000 ML 500 ML IV (08:37)
[2024-12-12 08:59] LABS: POC Glucose,Bedside 119 (70-110)
[2024-12-12] MEDS: LACTATED RINGERS 1000ML 1,000 ML 999 ML IV (09:00)
--- NOTE | 2024-12-12 09:41 | EXP.ANES.CKL ---
[facility] Disclaimer: The information contained in this section may have been updated after the patient was seen, as this information can be updated by other users. Medical History Gestational thrombocytopenia GDM, class A2 Irritable bowel syndrome affecting Rh negative state in antepartum period History of miscarriage x 1 Nausea and vomiting during Missed Anxiety IBS (irritable bowel syndrome) Surgical History History of D&C Family History Other No significant family history Social History (Updated 12/11/24 @ 14:37 by Cricket South RN) Smoking Status: Never smoker alcohol intake: never substance use type: denies use current occupational status: employed Travel in the last 8 weeks: None Have you lived/traveled outside US in past 30 days?: No Contact w/someone who lives/traveled outside US past 30 days?: No Exposure to someone with infectious disease in past 14 days?: No Do you have a fever (greater than 100.4 F or 38 C)?: No Have you tested positive for COVID-19: No Exposed to someone with COVID-19 in past 14 days?: No Do you have a sore throat?: No Do you have a cough?: No Do you have any weakness?: No Are you experiencing any nausea/vomitting?: No Do you have any diarrhea?: No Are you experiencing any unusual bleeding?: No Do you have any muscle aches/pain?: No Do you have any abdominal pain?: No Are you experiencing loss of taste or smell?: No [facility] Anesthesia Checklist Patient Identification Patient Identification: Arm Band Structural Data Admitted From: Inpatient Planned Operative Procedure/s: Labor Epidural Consent for Planned Operative Procedure(s) Verified: Yes Verified Documents: Surgical Consent and History and Physical Additional verifications Anesthesia Reactions: No Hx Blood Transfusions: No Blood Transfusion Reaction: No Neurological Assessment Level of Consciousness: Awake, Alert and Appropriate Anesthesia Plan Anesthesia Risk discussed: Yes Anesthesia Plan: Verified ASA Class: II Anesthesia Type: Epidural
[2024-12-12] MEDS: OXYTOCIN/RINGERS LACTATE 30 UNITS/500 ML BAG IV (10:30)
[2024-12-12] MEDS: ONDANSETRON 4MG/2ML VIAL 4 MG IV ×2 (12:10→17:54)
[2024-12-12 12:20] LABS: POC Glucose,Bedside 108 (70-110)
[2024-12-12 14:52] LABS: POC Glucose,Bedside 111 (70-110)
[2024-12-12 15:20] LABS: RPR W/RFX Titers Nonreactive (Nonreactive)
[2024-12-12 16:31] LABS: POC Glucose,Bedside 105 (70-110)
[2024-12-12] MEDS: OXYTOCIN/RINGERS LACTATE 30 UNITS/500 ML BAG 999 UNITS IV (18:43)
[2024-12-12] MEDS: OXYTOCIN/RINGERS LACTATE 30 UNITS/500 ML BAG 40 UNITS IV (18:59)
--- NOTE | 2024-12-12 19:30 | EXP.DN ---
Delivery Note Delivery Date:: 12/12/24 Delivery Time:: 18:40 Anesthesia Type: Epidural Was labor medically induced?: Yes Induction method: per misoprostol protocol Gestational age (weeks): 39 Infant delivered prior to 39 weeks?: No Justification for early elective delivery:: Gestational Diabetes Infant Gender: Female at 1 minute: 6 at 5 minutes: 8 LAC or MLE?: MLE Delivery Procedure:: Mom complete with epidural. Pushed for approximately 65 minutes. Mediolateral episiotomy performed secondary to maternal exhaustion and tight perineal band. Verbal consent was obtained. Head delivered spontaneously over intact perineum in NATHAN position. No nuchal cord. Anterior shoulder delivered with gentle downward pressure. Posterior shoulder and remainder of body delivered spontaneously. Baby placed on maternal abdomen, mouth and nares bulb suctioned, warmed/dried and stimulated. Delayed cord clamping was performed for 60 seconds. Cord was clamped and cut by father of baby. Cord blood was obtained. Placenta delivered spontaneously and intact. Placenta will be sent to pathology for review. Mediolateral episiotomy was repaired with 3-0 Vicryl. Hemostasis noted. Mom and baby were skin to skin and doing well after delivery. Live female baby (baby's name is Aislinn) APGARs 6 (1 min), 8 (5 min) EBL 100 mL Placental Delivery Description: Spontaneous
[2024-12-12 20:30] VITALS: BP 126/85; PULSE 77; RESP 19; TEMP 36.8
[2024-12-12] MEDS: BENZOCAINE-MENTHOL SPRAY 56GM CAN TP (21:07)
[2024-12-12] MEDS: ACETAMINOPHEN 500MG TAB 1000 MG PO (21:07)
[2024-12-12] MEDS: WITCH HAZEL 40 PADS/BOX 1 EACH TP (21:07)
[2024-12-13] MEDS: IBUPROFEN 400 MG TABLET 800 MG PO ×3 (01:32→18:29)
[2024-12-13 05:01] VITALS: BP 138/82; PULSE 83; RESP 17; TEMP 36.9; O2SAT 97
[2024-12-13 07:40] LABS: Basophils % 0.2 % (0.1-2.0); Eosinophils % 0.1 % (0.1-12.0); Hematocrit 33.2 % (37.0-47.0); Hemoglobin 11.4 g/dL (12.2-16.2); Lymphocytes # 1.6 K/mm3 (0.7-4.5); Lymphocytes % 15.4 % (10-50); Mean Corpuscular HGB Conc 34.3 g/dL (31.8-35.4); Mean Corpuscular Hemoglobin 31.8 pg (27.0-31.2); Mean Corpuscular Volume 92.5 fl (81-99); Mean Platelet Volume 11.1 fl (7.4-10.4); Monocytes # 0.4 K/mm3 (0.1-1.0); Monocytes % 3.5 % (1.7-9.3); Neutrophils # 8.5 K/mm3 (1.8-7.8); Neutrophils % 80.3 % (37.0-80.0); Platelet Count 114 K/mm3 (142-424); Red Blood Count 3.59 M/mm3 (4.20-5.40); Red Cell Distribution Width 12.8 % (11.5-17.5); White Blood Count 10.6 K/mm3 (4.8-10.8)
[2024-12-13] MEDS: SENNA 8.6MG TABLET 8.6 MG PO ×2 (10:19→20:32)
--- NOTE | 2024-12-13 12:07 | EXP.ACUTE.PN ---
Subjective *Date: 12/13/24 *Time: 12:07 Interval history: PPD # 1 s/p Feeling well. Pain controlled. Breast feeding. Lochia is appropriate. Voiding without difficulty and passing flatus. Tolerating regular diet. Denies fever/chills, chest pain and shortness of breath. No headaches, vision changes, lightheadedness/dizziness. No lower extremity swelling. Ambulating well ad per. Medical Exam Vital signs and Labs for Last 24 Hours: Vital Signs Temp Pulse Resp BP Pulse Ox O2 Del Method 12/13/24 05:01 98.4 F 83 17 138/82 97 Room Air 12/12/24 20:30 98.2 F 77 19 126/85 Laboratory Results - last 24 hr 12/11/24 14:11: RPR w/Rflx to Titer Nonreactive 12/12/24 12:14: POC Glucose 108 12/12/24 14:39: POC Glucose 111 H 12/12/24 16:23: POC Glucose 105 12/13/24 07:21: WBC 10.6 D, RBC 3.59 L, Hgb 11.4 L, Hct 33.2 L, MCV 92.5, MCH 31.8 H, MCHC 34.3, RDW 12.8, Plt Count 114 L, MPV 11.1 H, Neut % (Auto) 80.3 H, Lymph % (Auto) 15.4, [place] % (Auto) 3.5, Eos % (Auto) 0.1, Baso % (Auto) 0.2, Neut # (Auto) 8.5 H, Lymph # (Auto) 1.6, [place] # (Auto) 0.4, Eos # (Auto) 0.0, Baso # (Auto) 0.0, Screen Negative, Baby's Rh Status Positive I & O for Labs for Last 24 Hours: Intake & Output 12/10/24 12/11/24 12/12/24 12/13/24 23:59 23:59 23:59 23:59 Weight 165 lb Head: Present atraumatic and normocephalic ENT: Present normal exam Neck: Present normal inspection and full ROM Respiratory: Present CTA bilaterally and normal respiratory effort Cardiac: Present Reg Rate and Rhythm GI: Present soft; Absent distention or tenderness Comments:: Uterine fundus firm and below umbilicus Rectal (female): Present deferred (female): Present deferred Extremities: Present normal inspection and full ROM; Absent edema or calf tenderness Neuro: Present alert, awake and moves all extremities Assessment and Plan *Assessment and plan (1) Status post normal vaginal delivery: Status: Acute Category: Medical (2) GDM, class A2: Status: Acute Category: Medical Code(s): O24.419 - Gestational diabetes mellitus in , unspecified control (3) Gestational thrombocytopenia: Status: Acute Qualifiers: Trimester: third trimester Qualified Code(s): O99.113 - Other diseases of the blood and blood-forming organs and certain disorders involving the immune mechanism complicating , third trimester; D69.6 - Thrombocytopenia, unspecified Category: Medical Code(s): O99.119 - Other diseases of the blood and blood-forming organs and certain disorders involving the immune mechanism complicating , unspecified trimester; D69.6 - Thrombocytopenia, unspecified (4) Irritable bowel syndrome affecting : Status: Acute Qualifiers: Trimester: first trimester Qualified Code(s): O99.611 - Diseases of the digestive system complicating , first trimester; K58.9 - Irritable bowel syndrome without diarrhea Category: Medical Code(s): O99.619 - Diseases of the digestive system complicating , unspecified trimester; K58.9 - Irritable bowel syndrome, unspecified (5) Rh negative state in antepartum period: Status: Acute Category: Medical Code(s): O26.899 - Other specified related conditions, unspecified trimester; Z67.91 - Unspecified blood type, Rh negative Plan Continue routine care Feeling well Plan on d/c home tomorrow
[2024-12-13] MEDS: ACETAMINOPHEN 500MG TAB 1000 MG PO ×2 (12:50→20:32)
[2024-12-13] MEDS: RHO(D) IMMUNE GLOBULIN 1,500 UNIT (300MCG) SYRINGE 300 MCG IM (12:50)
[2024-12-13 16:27] VITALS: BP 116/78; PULSE 67; RESP 17; TEMP 36.7; O2SAT 98
[2024-12-13] MEDS: PRENATAL MULTIVITAMIN W/IRON 1 EACH PO (17:38)
[2024-12-13 20:35] VITALS: BP 124/79; PULSE 73; RESP 16; TEMP 36.6; O2SAT 98
[2024-12-14 01:00] VITALS: BP 124/79
[2024-12-14 03:38] VITALS: BP 126/86; PULSE 67; RESP 15; TEMP 36.4; O2SAT 100
[2024-12-14 07:45] VITALS: BP 111/78; PULSE 70; RESP 16; TEMP 36.5; O2SAT 99
--- NOTE | 2024-12-14 13:21 | P.DS_ITS ---
General Admission date:: 12/11/24 Discharge date: 12/14/24 HPI HPI HPI: PPD # 2 s/p Feeling well. Pain controlled. Breast feeding. Lochia is light. Voiding without difficulty and passing flatus. Tolerating regular diet. Denies fever/chills, chest pain and shortness of breath. No headaches, vision changes, lightheadedness/dizziness. No lower extremity swelling. Ambulating well ad per. Hospital Course Hospital Course Hospital Course: Mrs Aleta Mason is a 29 yo at 39w1d who presents to [facility] L&D for scheduled induction of labor secondary to GDMA2. She has been taking Glyburide 2.5 mg PO in the AM and 5 mg PO in the PM. Blood sugars controlled with medication. She has had good care. complicated by gestational thrombocytopenia and anxiety. She takes escitalopram 10 mg PO daily. Baby is active. She underwent induction of labor with Cytotec followed by Pitocin. She had a normal spontaneous vaginal delivery on 12/12/24 at 1840. She delivered a live female baby, Gratis, weighing 6 lb 13 oz. APGARs 6 (1 min), 8 (5 min). EBL 100 mL. She did well . Pain controlled. Breast feeding. Light lochia. Voiding without difficulty and passing flatus. Tolerating regular diet. Denies fever/chills, chest pain and shortness of breath. No headaches, dizziness/lightheadedness or vision changes. Vital signs stable, afebrile. Heart regular rate and rhythm. Lungs clear to auscultation. Abdomen soft, nontender. No lower extremity swelling. Ambulating well ad per. Normal hospital course. She was discharged to home on POD # 2 with instructions to follow-up in the office in 2 weeks or sooner if needed. Exam Data for Last 24 hours Vital signs and Labs for Last 24 Hours: Temp Pulse Resp BP Pulse Ox O2 Del Method 97.7 F 70 16 111/78 99 Room Air 12/14/24 07:45 12/14/24 07:45 12/14/24 07:45 12/14/24 07:45 12/14/24 07:45 12/14/24 07:45 I & O for Last 24 hours: Intake & Output 12/11/24 12/12/24 12/13/2425 23:59 23:59 23:59 23:59 Intake Total 540 / 540 Balance 540 / 540 Weight 165 lb Constitutional Constitutional: no acute distress and cooperative *Routine HEENT Exam Head: Present normocephalic and atraumatic Eye: Absent conjunctivae pink ENT: Present mucous membranes moist *Routine Neck Exam Neck: Present full ROM *Routine Respiratory Exam Respiratory: Present CTA bilaterally and normal respiratory effort *Routine Cardiovascular Exam Cardiovascular: Present RRR *Routine Abdominal Exam Abdominal: Present soft and normoactive bowel sounds; Absent tenderness *Routine Rectal Exam Patient deferred: visual exam *Routine Exam Patient deferred: external exam *Routine Extremities Exam Extremities: Present full ROM; Absent edema or calf tenderness DS: Diagnosis Discharge Diagnosis (1) Status post normal vaginal delivery: Status: Acute (2) GDM, class A2: Status: Acute Code(s): O24.419 - Gestational diabetes mellitus in , unspecified control (3) Gestational thrombocytopenia: Status: Acute Code(s): O99.119 - Other diseases of the blood and blood-forming organs and certain disorders involving the immune mechanism complicating , unspecified trimester; D69.6 - Thrombocytopenia, unspecified Qualifiers: Trimester: third trimester Qualified Code(s): O99.113 - Other diseases of the blood and blood-forming organs and certain disorders involving the immune mechanism complicating , third trimester; D69.6 - Thrombocytopenia, unspecified (4) Irritable bowel syndrome affecting : Status: Acute Code(s): O99.619 - Diseases of the digestive system complicating , unspecified trimester; K58.9 - Irritable bowel syndrome, unspecified Qualifiers: Trimester: first trimester Qualified Code(s): O99.611 - Diseases of the digestive system complicating , first trimester; K58.9 - Irritable bowel syndrome without diarrhea (5) Rh negative state in antepartum period: Status: Acute Code(s): O26.899 - Other specified related conditions, unspecified trimester; Z67.91 - Unspecified blood type, Rh negative Meds Home Medications and Allergies Home Medications ?Medication ?Instructions ?Recorded ?Confirmed ?Type escitalopram oxalate 10 mg tablet 10 mg PO DAILY 01/05/22 12/11/24 History vits 75-iron 28 mg-folic 1 pkg PO DAILY 01/08/23 12/11/24 History acid 800 mcg-omega-3 oral combo pack (One A Day Women's DHA) blood-glucose meter #1 ea 09/29/24 12/11/24 Rx blood sugar diagnostic (Blood #120 ea 11/05/24 12/11/24 Rx Glucose Test strips) lancets (Accu-Chek Softclix #200 ea 11/05/24 12/11/24 Rx Lancets) lancets 33 gauge (OneTouch Delica #100 ea 11/11/24 12/11/24 History Plus Lancet) New Prescriptions to Start Prescriptions: Allergies Allergy/AdvReac Type Severity Reaction Status Date / Time No Known Allergies Allergy Verified 12/09/24 13:27 Discharge Plan Disposition Patient Disposition: Home, Self-Care Condition: Good Discharge Order Discharge Orders: Discharge Order (Routine); Ordered 12/14/24 Ordered By: Tala Anderson Follow up Plan Follow up with: Tala Anderson DO [Staff Physician] - 2 weeks (CALL OFFICE TO SCHEDULE ) Prescriptions/Medication Reconciliation: Continued escitalopram oxalate 10 mg tablet 10 mg PO DAILY Patient Comments: TAKE 1 TABLET BY MOUTH DAILY Discontinued glyburide 5 mg tablet 5 mg PO PM glyburide 2.5 mg tablet 2.5 mg PO AM No Action (DME) lancets [OneTouch Delica Plus Lancet] 33 gauge misc See Rx Instructions .ROUTE .MEDSUPPLY Qty: 100 Patient Comments: CHECK BLOOD SUGAR 4 TIMES DAILY FASTING AND 2 HOURS AFTER EACH MEAL. KEEP A LOG Rx Instructions: As directed One A Day Women's DHA 28 mg iron- 800 mcg combo pack 1 pkg PO DAILY (DME) blood-glucose meter Kit See Rx Instructions .Route Qty: 1 0RF Rx Instructions: Check BS QID. Fasting and 2 hours after each meal. Keep a Log (DME) Blood Glucose Test Strip See Rx Instructions .Route Qty: 120 1RF Rx Instructions: One touch ultra 2- Test QID (DME) lancets [Accu-Chek Softclix Lancets] Misc See Rx Instructions .Route Qty: 200 0RF Rx Instructions: One touch ultra 2- Test QID Problem Reconciliation Problems Reviewed?: Yes Patient Discharge Instructions ACTIVITY: Limited activity DIET: continue same diet and regular diet Additional Instructions: Congratulations!! Discharge: 1. Take 800 mg Ibuprofen every 8 hours as needed for pain. You can also take 500-1000 mg of Tylenol in between doses, every 6-8 hours. 2. Nothing in the vagina for 6 weeks - no intercourse, douching or tampons. No tub baths/hot tubs or swimming pools 3. Reasons to return to L&D or call On-Call doctor - fever (greater than 100.4) - heavy vaginal bleeding (soaking through 1 pad in less than 2 hours) - vaginal discharge (malodorous and/or purulent) - severe headaches not resolved by medication or rest and leg tenderness/edema 4. depression/blues - Normal to feel anxious/overwhelmed for first 2 weeks - Talk to your doctor if: severe anxiety, trouble bonding with baby, withdrawing from other family members, thoughts of harming yourself or others Tala Anderson DO [facility] [phone] Patient Instructions: Depression, Hemorrhage, DI for Labor and Delivery, Vaginal , [facility] Post Discharge Instructions Print Language: Armenian Providers Primary Care Provider: Michele Gallego Admit Provider: Adamaris Martínez Attending Provider: Adamaris Martínez
== END 2024-12-14 15:36 | disposition home or self-care (01) | DRG 806 ==
PROVIDERS: Obstetrics & Gynecology; Admitting Provider Obstetrics & Gynecology; PCP Internal Medicine Adolescent Medicine; Visit Provider Obstetrics & Gynecology
DX: O24.425 Gestational diabetes mellitus in childbirth, controlled by oral hypoglycemic drugs (principal); O99.12 Other diseases of the blood and blood-forming organs and certain disorders involving the immune mechanism complicating childbirth; Z37.0 Single live birth; O75.81 Maternal exhaustion complicating labor and delivery; D69.6 Thrombocytopenia, unspecified; Z3A.39 39 weeks gestation of pregnancy; Z67.11 Type A blood, Rh negative; O26.893 Other specified pregnancy related conditions, third trimester
CPT/HCPCS: 36415; 59025; 80053; 80307; 81001; 82962; 84112; 85025; 85461; 86592; 86850; 86870; 94761; G0283; J2405; J2790; J3010; J7120

== ENCOUNTER 2024-12-17 18:25 | Inpatient (IN) | payer BC, SELFPAY ==
[2024-12-17] VITALS (10 sets, daily range): BP systolic 108–150; BP diastolic 70–101; PULSE 63–85; RESP 16–19; TEMP 36.7–37.2; O2SAT 97–100; BMI 27.4
--- NOTE | 2024-12-17 17:32 | PC.NURSE ---
Pt arrived to the department per wheelchair with complaints of elevated B/P
[2024-12-17 17:37] LABS: Microscopic, Urine URINE MICROSCOPIC (MICROSCOPIC)
[2024-12-17 17:41] LABS: Appearance,Urine CLEAR (Clear); Bilirubin,Urine Negative (Negative); Blood, Urine 2+ (Negative); Color,Urine YELLOW (Yellow); Glucose,Urine (UA) Negative (Negative); Ketones,Urine 1+ (Negative); Leukocyte Esterase,Urine Negative (Negative); Nitrate,Urine Negative (Negative); Protein,Urine Negative (Negative); Urobilinogen,Urine 0.2 EU/dl (0.2)
[2024-12-17 17:58] LABS: Creatinine,Urine Random 25 mg/dL (Not Estab.)
[2024-12-17] MEDS: LABETALOL 100MG TABLET 100 MG PO (18:43)
--- NOTE | 2024-12-17 18:45 | PC.NURSE ---
Pt updated on the POC and moved to room 274
[2024-12-17 18:52] LABS: Basophils % 0.3 % (0.1-2.0); Eosinophils # 0.1 K/mm3 (0.0-0.4); Eosinophils % 0.6 % (0.1-12.0); Hematocrit 40.2 % (37.0-47.0); Hemoglobin 13.9 g/dL (12.2-16.2); Lymphocytes % 20.6 % (10-50); Mean Corpuscular HGB Conc 34.6 g/dL (31.8-35.4); Mean Corpuscular Hemoglobin 32.1 pg (27.0-31.2); Mean Corpuscular Volume 92.8 fl (81-99); Mean Platelet Volume 9.5 fl (7.4-10.4); Monocytes # 0.4 K/mm3 (0.1-1.0); Monocytes % 4.1 % (1.7-9.3); Neutrophils % 73.6 % (37.0-80.0); Platelet Count 278 K/mm3 (142-424); Red Blood Count 4.33 M/mm3 (4.20-5.40); Red Cell Distribution Width 12.6 % (11.5-17.5); White Blood Count 9.5 K/mm3 (4.8-10.8)
--- NOTE | 2024-12-17 19:00 | PC.NURSE ---
report recieved from Evans South RN
[2024-12-17 19:10] LABS: Albumin Level 4.5 g/dl (3.5-5.0); Chloride 105 mmol/L (98-107); Sodium 138 mmol/L (136-145)
[2024-12-17 19:11] LABS: Potassium 4.1 mmoL/L (3.5-5.1)
[2024-12-17 19:13] LABS: Alanine Aminotransferase 41 U/L (12-78); Albumin/Globulin Ratio 1.5 (1.1-1.8); Alkaline Phosphatase 163 U/L (38-126); Anion Gap 13.1 mEq/L (5-15); Aspartate Amino Transferase 40 U/L (14-36); Bilirubin,Total 0.4 mg/dl (0.2-1.3); Blood Urea Nitrogen 7 mg/dl (7-17); Carbon Dioxide 24 mmol/L (22.0-30.0); Creatinine Clearance Estimated 139 mL/min (50-200); Estimated Glomerular Filt Rate 98 ml/min (>60); GFR (African American) 119 ML/MIN (>60); Total Protein,Serum 7.5 g/dl (6.3-8.2)
[2024-12-17 19:14] LABS: Calcium 9.5 mg/dl (8.4-10.2); Glucose 93 mg/dl (74-100)
[2024-12-17 19:18] LABS: Activated Partial Thrombo Time 25.4 seconds (22.8-30.6); Fibrinogen 422 mg/dL (229.9-363.5); INR 0.82 (0.9-1.1); Prothrombin Time 9.4 seconds (10.1-12.5)
[2024-12-17] MEDS: LACTATED RINGERS 1000ML 1,000 ML 75 ML IV (19:25)
[2024-12-17] MEDS: MAGNESIUM SULFATE IN WATER 4 GM/50 ML PIGGYBACK IV (19:26)
[2024-12-17] MEDS: diphenhydrAMINE 25MG CAPSULE 25 MG PO (19:45)
[2024-12-17 19:58] LABS: Bacteria,Urine Trace /lpf; Squamous Epithelial Cell,Urine Occasional #/hpf (0-5)
--- NOTE | 2024-12-17 20:21 | EXP.HP ---
History of Present Illness *Admission Date: 12/17/24 *Reason for visit:: Elevated blood pressure, dizziness *History of present illness: Mrs Aleta Mason is a 29 yo P1011 who presents to [facility] L&D 5 days with complaint of elevated BP at home and episodes of dizziness. BP at home was 130's/90's. She admits she hasn't been sleeping much and her and baby Nicole are struggling with breast feeding. No headaches or vision changes. She has history of anxiety and has been taking escitalopram 10 mg daily for years. She states she was sitting at home and suddenly felt panic and worry for no reason. She admits she passed a blood clot last night but light vaginal bleeding since. [facility] Disclaimer: The information contained in this section may have been updated after the patient was seen, as this information can be updated by other users. Medical History (Updated 12/17/24 @ 21:04 by Tala Anderson DO) hypertension Status post normal vaginal delivery Gestational thrombocytopenia GDM, class A2 Irritable bowel syndrome affecting Rh negative state in antepartum period History of miscarriage Nausea and vomiting during Missed Anxiety IBS (irritable bowel syndrome) Surgical History History of D&C Family History Other No significant family history Social History (Updated 12/17/24 @ 18:30 by Cricket South RN) Smoking Status: Never smoker alcohol intake: never substance use type: denies use current occupational status: employed Travel in the last 8 weeks: None Have you lived/traveled outside US in past 30 days?: No Contact w/someone who lives/traveled outside US past 30 days?: No Exposure to someone with infectious disease in past 14 days?: No Do you have a fever (greater than 100.4 F or 38 C)?: No Have you tested positive for COVID-19: No Exposed to someone with COVID-19 in past 14 days?: No Do you have a sore throat?: No Do you have a cough?: No Do you have any weakness?: No Are you experiencing any nausea/vomitting?: No Do you have any diarrhea?: No Are you experiencing any unusual bleeding?: No Do you have any muscle aches/pain?: No Do you have any abdominal pain?: No Are you experiencing loss of taste or smell?: No Other Medical History Have you received the Flu Vaccine for this season: No Have you received the Pneumonia Vaccine: No Review of Systems Review of Systems Review of systems:: pertinent systems reviewed and negative unless documented below ENT Ears, Nose, Mouth, and Throat: Reports dizziness (episodic) *Neurologic Neurologic: Reports dizziness (episodic) Psychiatric Psychiatric: Reports anxiety Meds Home Medications and Allergies Home Medications ?Medication ?Instructions ?Recorded ?Confirmed ?Type escitalopram oxalate 10 mg tablet 10 mg PO DAILY 01/05/22 12/11/24 History vits 75-iron 28 mg-folic 1 pkg PO DAILY 01/08/23 12/11/24 History acid 800 mcg-omega-3 oral combo pack (One A Day Women's DHA) blood-glucose meter #1 ea 09/29/24 12/11/24 Rx blood sugar diagnostic (Blood #120 ea 11/05/24 12/11/24 Rx Glucose Test strips) lancets (Accu-Chek Softclix #200 ea 11/05/24 12/11/24 Rx Lancets) lancets 33 gauge (OneTouch Delica #100 ea 11/11/24 12/11/24 History Plus Lancet) New Prescriptions to Start Prescriptions: Allergies Allergy/AdvReac Type Severity Reaction Status Date / Time No Known Allergies Allergy Verified 12/09/24 13:27 Exam Data for Last 24 hours Vital signs and Labs for Last 24 Hours: Temp Pulse Resp BP Pulse Ox O2 Del Method 98.3 F 81 19 150/101 H 98 Room Air 12/17/24 17:40 12/17/24 17:40 12/17/24 17:40 12/17/24 18:10 12/17/24 17:40 12/17/24 17:40 Laboratory Results - last 24 hr 12/17/24 17:30: Urine Color Yellow, Urine Appearance Clear, Urine pH 7.0, Ur Specific [place] 1.010, Urine Protein Negative, Urine Glucose (UA) Negative, Urine Ketones 1+, Urine Blood 2+ A, Urine Nitrate Negative, Urine Bilirubin Negative, Urine Urobilinogen 0.2, Ur Leukocyte Esterase Negative, Urine RBC 10-20, Urine WBC 5-10, Ur Squamous Epith Cells Occasional, Urine Bacteria Trace, Urine Creatinine 25, Urine Total Protein 23.0 H 12/17/24 18:42: WBC 9.5, RBC 4.33, Hgb 13.9, Hct 40.2, MCV 92.8, MCH 32.1 H, MCHC 34.6, RDW 12.6, Plt Count 278, MPV 9.5, Neut % (Auto) 73.6, Lymph % (Auto) 20.6, [place] % (Auto) 4.1, Eos % (Auto) 0.6, Baso % (Auto) 0.3, Neut # (Auto) 7.0, Lymph # (Auto) 2.0, [place] # (Auto) 0.4, Eos # (Auto) 0.1, Baso # (Auto) 0.0, PT 9.4 L, INR 0.82 L, APTT 25.4, Fibrinogen 422 H, Sodium 138, Potassium 4.1, Chloride 105, Carbon Dioxide 24, Anion Gap 13.1, BUN 7, Creatinine 0.70, Estimated Creat Clear 139, Estimated GFR 98, Est GFR ( Amer) 119, Glucose 93, Calcium 9.5, Total Bilirubin 0.4, AST 40 H, ALT 41, Alkaline Phosphatase 163 H, Total Protein 7.5 D, Albumin 4.5, Globulin 3.0, Albumin/Globulin Ratio 1.5 I & O for Last 24 hours: Intake & Output 12/14/24 12/15/24 12/16/24 12/17/24 23:59 23:59 23:59 23:59 Weight 165 lb Constitutional Constitutional: no acute distress and cooperative *Routine HEENT Exam Head: Present normocephalic and atraumatic Eye: Absent conjunctivae pink ENT: Present mucous membranes moist *Routine Neck Exam Neck: Present full ROM *Routine Respiratory Exam Respiratory: Present CTA bilaterally and normal respiratory effort *Routine Cardiovascular Exam Cardiovascular: Present RRR *Routine Abdominal Exam Abdominal: Present soft; Absent tenderness or distended *Routine Rectal Exam Rectal:: deferred *Routine Genitalia Exam Genitalia:: deferred *Routine Extremities Exam Extremities: Present full ROM; Absent edema or calf tenderness *Routine Neurological Exam Neurological: Present alert, moving all extremities and normal speech Routine Psychiatric Exam Psychiatric: Present normal affect and cooperative Assessment and Plan *Assessment and plan (1) hypertension: Status: Acute Category: Medical Code(s): O16.5 - Unspecified maternal hypertension, complicating the puerperium (2) Status post normal vaginal delivery: Status: Acute Category: Medical (3) Anxiety: Status: Acute Category: Medical Code(s): F41.9 - Anxiety disorder, unspecified (4) IBS (irritable bowel syndrome): Status: Acute Qualifiers: Irritable bowel syndrome type: unspecified Qualified Code(s): K58.9 - Irritable bowel syndrome, unspecified Category: Medical Code(s): K58.9 - Irritable bowel syndrome, unspecified Plan preeclampsia vs anxiety vs both Serial BPs are mild range PIH labs reviewed. Plts WNL, Hgb WNL, Cr is WNL (0.70), AST is mildly elevated, 40, ALT is WNL. Urine protein/creatinine ratio is not accurate because she is having normal vaginal bleeding and there is blood in her urine. She was give one dose of Labetalol 100 mg PO and started on mag sulfate for preeclampsia. Will continue mag sulfate for 24 hours. Check mag level 4 hours after bolus Discussed preeclampsia vs anxiety with Aleta. She admits she feels very anxious and is worried about not bonding well with baby and the struggles with breast feeding. She admits she would rather not be on BP medication if possible. Will hold next dose of Labetalol. Discussed we may need to continue it but will continue to monitor BP for now Will increase Lexapro to 20 mg PO daily She has decided to stop breast feeding and formula feed instead. Bendaryl 25 mg PO ordered and ice packs with LALO wrap for her chest. Since discussing everything and starting mag sulfate she admits she feels better Baby Nicole is home with her dad, Aleta's Discussed trying Vistaril 25 mg PO tonight before bed to help with anxiety and rest. She would like to try this Repeat labs in the AM Continue to monitor
[2024-12-17] MEDS: MAGNESIUM SULFATE IN WATER 20 GM/500 ML IV.SOLN IV (21:00)
[2024-12-17 21:21] LABS: Uric Acid 5.4 mg/dl (2.5-6.2)
--- NOTE | 2024-12-17 23:37 | PC.NURSE ---
Lab on unit for mag level
[2024-12-18] VITALS (26 sets, daily range): BP systolic 102–145; BP diastolic 66–95; PULSE 71–111; RESP 15–18; TEMP 36.3–36.6; O2SAT 95–100
[2024-12-18 01:08] LABS: Magnesium 5.8 mg/dl (1.6-2.3)
[2024-12-18] MEDS: diphenhydrAMINE 25MG CAPSULE 25 MG PO ×3 (03:39→22:30)
--- NOTE | 2024-12-18 04:15 | PC.NURSE ---
Reassessment completed. Patient BP has been WNL since starting Mag. Mag level thearapeutic per labs. Patient has slept most of shift other than to go to bathroom. Vitals WNL. Patient denies pain. Respirations WNL. Lungs CTA bilaterally. No edma present. Call light within reach
[2024-12-18 06:32] LABS: Basophils % 0.4 % (0.1-2.0); Eosinophils # 0.1 K/mm3 (0.0-0.4); Eosinophils % 0.8 % (0.1-12.0); Hematocrit 37.2 % (37.0-47.0); Hemoglobin 12.7 g/dL (12.2-16.2); Lymphocytes % 24.7 % (10-50); Mean Corpuscular HGB Conc 34.1 g/dL (31.8-35.4); Mean Corpuscular Hemoglobin 31.9 pg (27.0-31.2); Mean Corpuscular Volume 93.5 fl (81-99); Mean Platelet Volume 9.5 fl (7.4-10.4); Monocytes # 0.4 K/mm3 (0.1-1.0); Monocytes % 4.8 % (1.7-9.3); Neutrophils # 5.5 K/mm3 (1.8-7.8); Neutrophils % 68.4 % (37.0-80.0); Platelet Count 235 K/mm3 (142-424); Red Blood Count 3.98 M/mm3 (4.20-5.40); Red Cell Distribution Width 12.3 % (11.5-17.5)
[2024-12-18 06:49] LABS: Alanine Aminotransferase 33 U/L (12-78); Albumin Level 3.8 g/dl (3.5-5.0); Albumin/Globulin Ratio 1.6 (1.1-1.8); Alkaline Phosphatase 138 U/L (38-126); Anion Gap 9.9 mEq/L (5-15); Aspartate Amino Transferase 30 U/L (14-36); Blood Urea Nitrogen 5 mg/dl (7-17); Calcium 6.8 mg/dl (8.4-10.2); Carbon Dioxide 24 mmol/L (22.0-30.0); Chloride 105 mmol/L (98-107); Creatinine Clearance Estimated 162 mL/min (50-200); Estimated Glomerular Filt Rate 117 ml/min (>60); GFR (African American) 142 ML/MIN (>60); Globulin 2.4 g/dL (1.3-3.2); Glucose 96 mg/dl (74-100); Potassium 3.9 mmoL/L (3.5-5.1); Sodium 135 mmol/L (136-145); Total Protein,Serum 6.2 g/dl (6.3-8.2); Uric Acid 5.9 mg/dl (2.5-6.2)
--- NOTE | 2024-12-18 06:57 | PC.NURSE ---
report given to Jaya South RN
[2024-12-18 07:00] LABS: Bilirubin,Total 0.1 mg/dl (0.2-1.3)
--- NOTE | 2024-12-18 08:02 | HMH.PHAINT1 ---
Pharmacy Intervention Comments: MEDICATION RECONCILIATION COMPLETED ON PATIENT USING EXTERNAL FILL HISTORY FROM PHARMACY AND DISCHARGE SUMMARY FROM PREVIOUS ADMISSION. -JACIEL SOSA, ADILSOND
--- NOTE | 2024-12-18 08:10 | PC.NURSE ---
Dr. Anderson is in to assess the pt. Pt denies needing to void at this time
[2024-12-18] MEDS: MAGNESIUM SULFATE IN WATER 20 GM/500 ML IV.SOLN IV (08:26)
[2024-12-18] MEDS: LACTATED RINGERS 1000ML 1,000 ML 75 ML IV (08:26)
--- NOTE | 2024-12-18 08:30 | PC.NURSE ---
0830- Dr. Martínez is in to assess the Pt
--- NOTE | 2024-12-18 08:35 | P.PN_ITS ---
Subjective *Date: 12/18/24 *Time: 08:35 Interval history: Resting comfortably in bed this morning. She admits she got some sleep last night. She is feeling okay. Still having some anxiety. No headaches, vision changes or RUQ pain this morning. BP has been normotensive overnight. She is sidra erating regular diet. Medical Exam Vital signs and Labs for Last 24 Hours: Vital Signs Temp Pulse Resp BP Pulse Ox O2 Del Method 12/18/24 07:40 97.5 F L 99 H 18 132/88 99 Room Air 12/18/24 07:31 Room Air 12/18/24 07:30 99 Room Air 12/18/24 07:10 80 16 129/84 98 Room Air 12/18/24 06:10 74 16 139/84 99 Room Air 12/18/24 05:15 Room Air 12/18/24 05:10 71 18 123/79 98 Room Air 12/18/24 04:15 97.8 F 72 18 112/75 97 Room Air 12/18/24 03:13 Room Air 12/18/24 03:13 94 H 16 110/76 99 Room Air 12/18/24 02:13 78 17 113/73 96 Room Air 12/18/24 01:13 Room Air 12/18/24 01:13 74 18 117/73 97 Room Air 12/18/24 00:13 91 H 18 131/86 99 Room Air 12/17/24 23:10 64 18 121/74 99 Room Air 12/17/24 23:10 Room Air 12/17/24 22:09 98.0 F 63 16 110/72 97 Room Air 12/17/24 21:00 75 18 135/70 100 Room Air 12/17/24 21:00 Room Air 12/17/24 20:18 80 18 108/72 L 99 Room Air 12/17/24 20:03 85 17 122/91 H 98 Room Air 12/17/24 19:30 76 18 148/93 H 100 Room Air 12/17/24 19:30 100 Room Air 12/17/24 19:15 98.9 F 76 17 150/93 H 97 Room Air 12/17/24 18:10 150/101 H 12/17/24 17:55 149/92 H 12/17/24 17:40 98.3 F 81 19 143/91 H 98 Room Air Intake and Output 12/17/24 12/18/24 12/18/24 23:59 07:59 15:59 Intake Total 1405 / 1405 Output Total 400 / 400 1900 / 1900 Balance -400 / -400 -495 / -495 Intake: Intake, Oral Amount 480 / 480 Intake, Other Amount 925 / 925 Output: Output, Urine Amount 400 / 400 1900 / 1900 Other: Weight 165 lb Laboratory Results - last 24 hr 12/17/24 17:30: Urine Color Yellow, Urine Appearance Clear, Urine pH 7.0, Ur Specific [place] 1.010, Urine Protein Negative, Urine Glucose (UA) Negative, Urine Ketones 1+, Urine Blood 2+ A, Urine Nitrate Negative, Urine Bilirubin Negative, Urine Urobilinogen 0.2, Ur Leukocyte Esterase Negative, Urine RBC 10- 20, Urine WBC 5-10, Ur Squamous Epith Cells Occasional, Urine Bacteria Trace, Urine Creatinine 25, Urine Total Protein 23.0 H 12/17/24 18:42: WBC 9.5, RBC 4.33, Hgb 13.9, Hct 40.2, MCV 92.8, MCH 32.1 H, MCHC 34.6, RDW 12.6, Plt Count 278, MPV 9.5, Neut % (Auto) 73.6, Lymph % (Auto) 20.6, [place] % (Auto) 4.1, Eos % (Auto) 0.6, Baso % (Auto) 0.3, Neut # (Auto) 7.0, Lymph # (Auto) 2.0, [place] # (Auto) 0.4, Eos # (Auto) 0.1, Baso # (Auto) 0.0, PT 9.4 L, INR 0.82 L, APTT 25.4, Fibrinogen 422 H, Sodium 138, Potassium 4.1, Chloride 105, Carbon Dioxide 24, Anion Gap 13.1, BUN 7, Creatinine 0.70, Estimated Creat Clear 139, Estimated GFR 98, Est GFR ( Amer) 119, Glucose 93, Uric Acid 5.4, Calcium 9.5, Total Bilirubin 0.4, AST 40 H, ALT 41, Alkaline Phosphatase 163 H, Total Protein 7.5 D, Albumin 4.5, Globulin 3.0, Albumin/Globulin Ratio 1.5 12/17/24 23:40: Magnesium 5.8 H 12/18/24 06:05: WBC 8.0, RBC 3.98 L, Hgb 12.7, Hct 37.2, MCV 93.5, MCH 31.9 H, MCHC 34.1, RDW 12.3, Plt Count 235, MPV 9.5, Neut % (Auto) 68.4, Lymph % (Auto) 24.7, [place] % (Auto) 4.8, Eos % (Auto) 0.8, Baso % (Auto) 0.4, Neut # (Auto) 5.5, Lymph # (Auto) 2.0, [place] # (Auto) 0.4, Eos # (Auto) 0.1, Baso # (Auto) 0.0, Sodium 135 L, Potassium 3.9, Chloride 105, Carbon Dioxide 24, Anion Gap 9.9, BUN 5 L D, Creatinine 0.60, Estimated Creat Clear 162, Estimated GFR 117, Est GFR ( Amer) 142, Glucose 96, Uric Acid 5.9, Calcium 6.8 L, Total Bilirubin 0.1 L, AST 30, ALT 33, Alkaline Phosphatase 138 H, Total Protein 6.2 L, Albumin 3.8 D, Globulin 2.4, Albumin/Globulin Ratio 1.6 I & O for Labs for Last 24 Hours: Intake & Output 12/15/24 12/16/24 12/17/24 12/18/24 23:59 23:59 23:59 23:59 Intake Total 1405 / 1405 Output Total 400 / 400 1900 / 1900 Balance -400 / -400 -495 / -495 Weight 165 lb Head: Present atraumatic and normocephalic ENT: Present normal exam Neck: Present full ROM Respiratory: Present CTA bilaterally and normal respiratory effort Cardiac: Present Reg Rate and Rhythm GI: Present soft; Absent distention or tenderness Rectal (female): Present deferred (female): Present deferred Extremities: Present full ROM; Absent edema or calf tenderness Neuro: Present alert, awake and moves all extremities Assessment and Plan *Assessment and plan (1) Anxiety: Status: Acute Category: Medical Code(s): F41.9 - Anxiety disorder, unspecified (2) hypertension: Status: Acute Category: Medical Code(s): O16.5 - Unspecified maternal hypertension, complicating the puerperium (3) Status post normal vaginal delivery: Status: Acute Category: Medical (4) IBS (irritable bowel syndrome): Status: Acute Qualifiers: Irritable bowel syndrome type: unspecified Qualified Code(s): K58.9 - Irritable bowel syndrome, unspecified Category: Medical Code(s): K58.9 - Irritable bowel syndrome, unspecified Plan Feeling okay this morning She was able to get some sleep overnight Her chest is still wrapped with ice packs. She denies pain. She is working on getting her breast milk dried up Repeat [facility] labs reviewed and all within normal limits. AST decreased to 30 BP normontensive Continue mag sulfate x 24 hours Continue to monitor BP Continue Lexapro 20 mg PO daily Holding Labetalol for now Possible d/c home tomorrow
--- NOTE | 2024-12-18 09:45 | PC.NURSE ---
Pt denies needing to void at this time
--- NOTE | 2024-12-18 11:10 | PC.NURSE ---
Pt denies needing to void in this hour
--- NOTE | 2024-12-18 13:10 | PC.NURSE ---
Pt was unable to void this hour
[2024-12-18] MEDS: ACETAMINOPHEN 500MG TAB 1000 MG PO ×2 (16:29→22:30)
--- NOTE | 2024-12-18 18:49 | PC.NURSE ---
Magnesium complete at this time. Pts IV saline locked
--- NOTE | 2024-12-18 19:00 | PC.NURSE ---
Report received from Diamond Jackson RN
--- NOTE | 2024-12-18 20:31 | PC.NURSE ---
Pt is resting but wokeup for nurses assessment. pt noted to have scant lochia, fundus is Firm at U-2, she is voiding and having normal BMs. Pt is wearing an acewrap around her breasts and using breast pads. Reflexes are WNL. Pt is not planing to continue and is trying to help stop her supply. Breasts are not extremely firm at this time and pt reports that she will use her breastpump only if she feels increased firmness and tenderness. Pt denies any current needs or concerns.
--- NOTE | 2024-12-18 21:14 | PC.NURSE ---
Pt is resting, BP cuff removed and pt denies any current needs or concerns.
--- NOTE | 2024-12-18 22:30 | PC.NURSE ---
Pt given Benadryl and tylenol (see MAR) per request , for breast tenderness with pain rated 1 out of 10. Pt reports that her breasts are feeling firmer but not to the point that she feels like she needs to pump. Pt given new icepacks to apply to her breasts prn too. Pt denies any further neeeds at this time.
[2024-12-19 00:09] VITALS: BP 111/76; PULSE 83; RESP 15; O2SAT 97
--- NOTE | 2024-12-19 00:14 | PC.NURSE ---
Pt has been sleeping, woke up for VS check and she denies any current needs or concerns.
--- NOTE | 2024-12-19 02:08 | PC.NURSE ---
Pt sleeping, in no apparent distress.
[2024-12-19 04:22] VITALS: BP 110/76; PULSE 90; RESP 16; TEMP 37; O2SAT 97
[2024-12-19 04:40] VITALS: O2SAT 97
--- NOTE | 2024-12-19 06:34 | PC.NURSE ---
pt is resting, she denies any current needs.
--- NOTE | 2024-12-19 07:02 | PC.NURSE ---
Report given to Elizabeth Pederson RN
--- NOTE | 2024-12-19 07:10 | PC.NURSE ---
Report received from MARTA Figueredo.
[2024-12-19 08:15] VITALS: BP 135/85; PULSE 91; RESP 18; TEMP 37.1; O2SAT 98
--- NOTE | 2024-12-19 10:00 | PC.NURSE ---
at to see pt.
[2024-12-19] MEDS: LABETALOL 100MG TABLET 100 MG PO (10:02)
--- NOTE | 2024-12-19 10:09 | P.DS_ITS ---
General Admission date:: 12/17/24 Discharge date: 12/19/24 HPI HPI HPI: Mrs Aleta Mason is a 29 yo P1011 who presents to [facility] L&D 5 days with complaint of elevated BP at home and episodes of dizziness. BP at home was 130's/90's. She admits she hasn't been sleeping much and her and baby Nicole are struggling with breast feeding. No headaches or vision changes. She has history of anxiety and has been taking escitalopram 10 mg daily for years. She states she was sitting at home and suddenly felt panic and worry for no reason. She admits she passed a blood clot last night but light vaginal bleeding since. Hospital Course Hospital Course Hospital Course: She was observed in hospital and her blood pressure settled with bedrest. She did have labetalol 100 mg twice daily and we held the medicine this morning because her blood pressure was a little too low. It has been mostly in the 130s over 80s. She denies any headache, scotomata or epigastric pain. She be discharged home to follow-up with Dr. Anderson later this week. We have increased her dosage of Lexapro to 20 mg and she will have a prescription for this to take daily. We will also continue with labetalol 100 mg twice daily. Her condition on discharge is stable and improved. Exam Data for Last 24 hours Vital signs and Labs for Last 24 Hours: Temp Pulse Resp BP Pulse Ox O2 Del Method 98.8 F 91 H 18 135/85 98 Room Air 12/19/24 08:15 12/19/24 08:15 12/19/24 08:15 12/19/24 08:15 12/19/24 08:15 12/19/24 08:41 I & O for Last 24 hours: Intake & Output 12/16/24 12/17/24 12/18/24 12/19/24 11:59 11:59 11:59 11:59 Intake Total 1405 / 1405 1617 / 1617 Output Total 2800 / 2800 1900 / 1900 Balance -1395 / -1395 -283 / -283 Weight 165 lb Constitutional Constitutional: no acute distress *Routine HEENT Exam Head: Present normocephalic *Routine Neck Exam Neck: Present full ROM *Routine Respiratory Exam Respiratory: Present normal respiratory effort; Absent accessory muscle use DS: Diagnosis Discharge Diagnosis (1) Anxiety: Status: Acute Code(s): F41.9 - Anxiety disorder, unspecified (2) hypertension: Status: Acute Code(s): O16.5 - Unspecified maternal hypertension, complicating the puerperium (3) Status post normal vaginal delivery: Status: Acute (4) IBS (irritable bowel syndrome): Status: Acute Code(s): K58.9 - Irritable bowel syndrome, unspecified Qualifiers: Irritable bowel syndrome type: unspecified Qualified Code(s): K58.9 - Irritable bowel syndrome, unspecified Meds Home Medications and Allergies Home Medications ?Medication ?Instructions ?Recorded ?Confirmed ?Type vits 75-iron 28 mg-folic 1 pkg PO DAILY 01/08/23 12/18/24 History acid 800 mcg-omega-3 oral combo pack (One A Day Women's DHA) blood-glucose meter #1 ea 09/29/24 12/18/24 Rx blood sugar diagnostic (Blood #120 ea 11/05/24 12/18/24 Rx Glucose Test strips) lancets (Accu-Chek Softclix #200 ea 11/05/24 12/18/24 Rx Lancets) lancets 33 gauge (OneTouch Delica #100 ea 11/11/24 12/18/24 History Plus Lancet) escitalopram oxalate 20 mg tablet 20 mg PO DAILY #30 tabs 12/19/24 Rx (Lexapro) labetalol 200 mg tablet 100 mg (1/2 x 200 mg) PO BID #30 12/19/24 Rx tabs New Prescriptions to Start Prescriptions: escitalopram oxalate [Lexapro] Neto Aguila labetalol Neto Aguila Allergies Allergy/AdvReac Type Severity Reaction Status Date / Time No Known Allergies Allergy Verified 12/09/24 13:27 Discharge Plan Disposition Patient Disposition: Home, Self-Care Discharge Order Discharge Orders: Discharge Order (Routine); Ordered 12/19/24 Ordered By: Neto Aguila Follow up Plan Prescriptions/Medication Reconciliation: New labetalol 200 mg Tablet 100 mg PO BID Qty: 30 1RF escitalopram oxalate [Lexapro] 20 mg tablet 20 mg PO DAILY Qty: 30 2RF Continued (DME) lancets [OneTouch Delica Plus Lancet] 33 gauge misc See Rx Instructions .ROUTE .MEDSUPPLY Qty: 100 Patient Comments: CHECK BLOOD SUGAR 4 TIMES DAILY FASTING AND 2 HOURS AFTER EACH MEAL. KEEP A LOG Rx Instructions: As directed One A Day Women's DHA 28 mg iron- 800 mcg combo pack 1 pkg PO DAILY (DME) blood-glucose meter Kit See Rx Instructions .Route Qty: 1 0RF Rx Instructions: Check BS QID. Fasting and 2 hours after each meal. Keep a Log (DME) Blood Glucose Test Strip See Rx Instructions .Route Qty: 120 1RF Rx Instructions: One touch ultra 2- Test QID (DME) lancets [Accu-Chek Softclix Lancets] [facility] See Rx Instructions .Route Qty: 200 0RF Rx Instructions: One touch ultra 2- Test QID Discontinued escitalopram oxalate 10 mg tablet 10 mg PO DAILY Patient Comments: TAKE 1 TABLET BY MOUTH DAILY Problem Reconciliation Problems Reviewed?: Yes Patient Discharge Instructions ACTIVITY: Continue current activity DIET: continue same diet Print Language: Stateless Providers Primary Care Provider: Michele Gallego Admit Provider: Tala Anderson Attending Provider: Tala Anderson
== END 2024-12-19 11:07 | disposition home or self-care (01) | DRG 776 ==
LOC: OBOUT 18:25 → OB 18:25
PROVIDERS: Admitting Provider Obstetrics & Gynecology; PCP Internal Medicine Adolescent Medicine; Visit Provider Obstetrics & Gynecology
DX: O16.5 Unspecified maternal hypertension, complicating the puerperium (principal); K58.9 Irritable bowel syndrome, unspecified; F41.9 Anxiety disorder, unspecified; O99.345 Other mental disorders complicating the puerperium; O99.63 Diseases of the digestive system complicating the puerperium; O24.93 Unspecified diabetes mellitus in the puerperium; Z79.899 Other long term (current) drug therapy
CPT/HCPCS: 36415; 80053; 81001; 82570; 83735; 84156; 84550; 85025; 85384; 85610; 85730; 94761; G0283; J7120